=== PATIENT | male | born 1955 | race African-American/Black ===

== ENCOUNTER 2017-05-16 13:31 | Inpatient (IN) | payer OTHER ==
[2017-05-16 16:22] VITALS: BMI 23.5
--- NOTE | 2017-05-16 18:43 | HP ---
CIWA Score - CIWA Score Nausea/Vomitin-Mild Nausea/No Vomiting Muscle Tremors: 4-Moderate,w/Arms Extend Anxiety: 4-Mod. Anxious/Guarded Agitation: 4-Moderately Restless Paroxysmal Sweats: 1-Minimal Palms Moist Orientation: 1-Uncertain about Date Tacttile Disturbances: 0-None Auditory Disturbances: 0-None Visual Disturbances: 0-None Headache: 1-Very Mild CIWA-Ar Total Score: 16 Admission ROS BHS - HPI Chief Complaint: withdrawal sx Allergies/Adverse Reactions: Allergies Allergy/AdvReac Type Severity Reaction Status Date / Time No Known Allergies Allergy Verified 05/16/17 17:04 History of Present Illness: 61 years old male with long history of alcohol nicotine dependence has hypertension and depression is admitted to detox Exam Limitations: No Limitations - Ebola screening Have you traveled outside of the country in the last 21 days: No Have you had contact with anyone from an Ebola affected area: No Have you been sick,other than usual withdrawal symptoms: No Do you have a fever: No - Review of Systems Constitutional: Loss of Appetite, Changes in sleep, Unintentional Wgt. Loss, Unexplained wgt Loss EENT: reports: Blurred Vision (eye glasses), Dental Problems (multiple teeth missing) Respiratory: reports: SOB with Exertion, Productive cough (yellowish) Cardiac: reports: Chest Pain (chronic chest pain once - twice a year x 15 years no treatment) GI: reports: Nausea, Poor Appetite, Poor Fluid Intake, Abdominal cramping : reports: No Symptoms Reported Musculoskeletal: reports: No Symptoms Reported Integumentary: reports: Rash Neuro: reports: Tremors Endocrine: reports: No Symptoms Reported Hematology: reports: No Symptoms Reported Psychiatric: reports: Judgement Intact, Anxious, Depressed Other Systems: Reviewed and Negative Patient History - Patient Medical History Hx Anemia: No Hx Asthma: No Hx Chronic Obstructive Pulmonary Disease (COPD): No Hx Cancer: No Hx Cardiac Disorders: No Hx Congestive Heart Failure: No Hx Hypertension: Yes Hx Hypercholesterolemia: No Hx Pacemaker: No HX Cerebrovascular Accident: No Hx Seizures: No Hx Dementia: No Hx Diabetes: No Hx Gastrointestinal Disorders: No Hx Liver Disease: No Hx Genitourinary Disorders: No Hx Sexually Transmitted Disorders: No Hx Renal Disease (ESRD): No Hx Thyroid Disease: No Hx Human Immunodeficiency Virus (HIV): No Hx Hepatitis C: Yes (treated) Hx Depression: Yes Hx Suicide Attempt: No Hx Bipolar Disorder: No Hx Schizophrenia: No - Patient Surgical History Past Surgical History: Yes Hx Neurologic Surgery: No Hx Cataract Extraction: No Hx Cardiac Surgery: No Hx Lung Surgery: No Hx Breast Surgery: No Hx Breast Biopsy: No Hx Abdominal Surgery: No Hx Appendectomy: No Hx Cholecystectomy: No Hx Genitourinary Surgery: No Hx Orthopedic Surgery: Yes (left leg 1994) Anesthesia Reaction: No - PPD History Previous Implant?: Yes Documented Results: Negative w/o proof Implanted On Prior [facility] Admission?: No PPD to be Administered?: Yes - Smoking Cessation Smoking history: Current every day smoker Have you smoked in the past 12 months: Yes Aproximately how many cigarettes per day: 10 Cigars Per Day: 0 Hx Chewing Tobacco Use: No Initiated information on smoking cessation: Yes 'Breaking Loose' booklet given: 05/16/17 - Substance & Tx. History Hx Alcohol Use: Yes Hx Substance Use: Yes Substance Use Type: Alcohol, Cocaine Hx Substance Use Treatment: Yes (2006) - Substances Abused Alcohol Route: Oral Frequency: Daily Amount used: liquor- 2 pints, beer- 2 quarts Age of first use: 17 Date of Last Use: 05/16/17 Crack Route: Smoking Frequency: Daily Amount used: 5 bags Age of first use: 50 Date of Last Use: 05/14/17 Family Disease History - Family Disease History Family Disease History: Other: Brother (no contact), Sister (no contact) Admission Physical Exam S - Vital Signs Vital Signs: Vital Signs - 24 hr 05/16/17 16:20 Temperature 98.1 F Pulse Rate 90 Respiratory 18 Rate Blood Pressure 150/100 - Physical General Appearance: Yes: Appropriately Dressed, Mild Distress, Thin, Tremorous, Irritable, Sweating, Anxious HEENTM: Yes: Hearing grossly Normal, Normal ENT Inspection, Normocephalic, Normal Voice Respiratory: Yes: Chest Non-Tender, Lungs Clear, Normal Breath Sounds, No Respiratory Distress, No Accessory Muscle Use Neck: Yes: Supple Breast: Yes: Breasts Symetrical Cardiology: Yes: Regular Rhythm, S1, S2, Tachycardia Abdominal: Yes: Normal Bowel Sounds, Non Tender, Soft Genitourinary: Yes: Within Normal Limits Back: Yes: Normal Inspection Musculoskeletal: Yes: full range of Motion, Gait Steady Extremities: Yes: Normal Range of Motion, Non-Tender, Tremors Neurological: Yes: Alert, Motor Strength 5/5, Normal Response, Depressed Affect Integumentary: Yes: Warm, Rash (arms and necks x "months") Lymphatic: Yes: Within Normal Limits - Diagnostic (1) Alcohol dependence with uncomplicated withdrawal Current Visit: Yes Status: Acute (2) Nicotine dependence Current Visit: Yes Status: Acute Qualifiers: Nicotine product type: cigarettes Substance use status: in withdrawal Qualified Code(s): F17.213 - Nicotine dependence, cigarettes, with withdrawal (3) Hypertension Current Visit: Yes Status: Chronic Qualifiers: Hypertension type: essential hypertension Qualified Code(s): I10 - Essential (primary) hypertension (4) Depression (emotion) Current Visit: Yes Status: Suspected Qualifiers: Depression Type: dysthymia Qualified Code(s): F34.1 - Dysthymic disorder (5) Weight loss Current Visit: Yes Status: Acute (6) Hepatitis C Current Visit: Yes Status: Resolved Qualifiers: Viral hepatitis chronicity: carrier Qualified Code(s): B18.2 - Chronic viral hepatitis C Comment: treated 2015 (7) Frequent falls Current Visit: Yes Status: Chronic Comment: fall precaution cane Cleared for Admission [facility] - Detox or Rehab [facility] Level of Care: Medically Managed Detox Regimen/Protocol: Librium [facility] Breath Alcohol Content Breath Alcohol Content: 0 Urine Drug Screen - Results Drug Screen Negative: No Urine Drug Screen Results: ANTONIO-Cocaine
[2017-05-16] MEDS ORDERED: IBUPROFEN 400 MG TABLET (FP) PO PRN (18:45)
[2017-05-16] MEDS ORDERED: MENTHOL/PHENOL 1 EACH UD MM PRN (18:45)
[2017-05-16] MEDS ORDERED: MAGNESIUM CITRATE 300 ML BOTTLE PO PRN (18:45)
[2017-05-16] MEDS ORDERED: MAG HYDROX/AL HYDROX/SIMETH 30 ML UNIT-DOSE CUP PO PRN (18:45)
[2017-05-16] MEDS ORDERED: LOPERAMIDE HCL 2 MG CAPSULE PO PRN (18:45)
[2017-05-16] MEDS ORDERED: P-EPHED 60MG/TRIPROLIDI 2.5MG TABLET PO PRN (18:45)
[2017-05-16] MEDS ORDERED: MAGNESIUM HYDROX 2400MG/30ML ORAL SUSPENSION 30 ML CUP PO PRN (18:45)
[2017-05-16] MEDS ORDERED: NICOTINE POLACRILEX 2 MG GUM BUC PRN (18:45)
[2017-05-16] MEDS ORDERED: ACETAMINOPHEN 325 MG TABLET (FP) PO PRN (18:45)
[2017-05-16] MEDS ORDERED: chlordiazePOXIDE HCL 25 MG CAPSULE PO PRN (18:45)
[2017-05-16] MEDS: amLODIPine BESYLATE 5 MG TABLET (FP) PO SCH (19:56)
[2017-05-16] MEDS: guaiFENesin/D-METHORPHAN HB 10 ML UNIT-DOSE CUPS PO PRN (20:03)
[2017-05-16] MEDS: THIAMINE HCL 100 MG TABLET (FP) PO SCH (22:20)
[2017-05-16] MEDS: chlordiazePOXIDE HCL 25 MG CAPSULE PO SCH (22:20)
[2017-05-16] MEDS: HYDROCORTISONE 1% TOPICAL CREAM 30 GM TUBE TP SCH (22:21)
[2017-05-16 23:03] LABS: URINE APPEARANCE CLOUDY; URINE BILIRUBIN NEGATIVE (NEGATIVE); URINE BLOOD NEGATIVE (NEGATIVE); URINE COLOR AMBER; URINE GLUCOSE (UA) NEGATIVE (NEGATIVE); URINE KETONE NEGATIVE (NEGATIVE); URINE NITRITE POSITIVE (NEGATIVE); URINE PROTEIN NEGATIVE (NEGATIVE); URINE UROBILINOGEN 4.0 E.U/dl mg/dL (0.2-1.0)
[2017-05-16 23:05] LABS: URINE LEUK ESTERASE 1+ (NEGATIVE)
[2017-05-17 00:14] LABS: EPI CELLS RARE /HPF (FEW); URINE BACTERIA RARE /hpf (NONE SEEN); URINE MUCUS RARE
[2017-05-17] MEDS: chlordiazePOXIDE HCL 25 MG CAPSULE PO SCH ×4 (05:37→22:26)
[2017-05-17] MEDS: guaiFENesin/D-METHORPHAN HB 10 ML UNIT-DOSE CUPS PO PRN ×2 (09:28→17:12)
[2017-05-17 10:05] LABS: HEMATOCRIT 42.2 % (35.4-49); HEMOGLOBIN 13.1 GM/dL (11.7-16.9); MCH 28.8 pg (25.7-33.7); MCHC 31.1 g/dl (32.0-35.9); MEAN CELL VOLUME 92.6 fl (80-96); MEAN PLT VOLUME 9.8 fl (7.5-11.1); PLATELET COUNT 210 K/MM3 (134-434); RBC 4.56 M/mm3 (4.00-5.60); RDW 13.2 % (11.9-15.9); WHITE BLOOD COUNT 6.6 K/mm3 (4.0-10.0)
[2017-05-17] MEDS: NICOTINE 14 MG/24 HOURS TOPICAL PATCH TD SCH (10:09)
[2017-05-17] MEDS: amLODIPine BESYLATE 5 MG TABLET (FP) PO SCH (10:09)
[2017-05-17] MEDS: HYDROCORTISONE 1% TOPICAL CREAM 30 GM TUBE TP SCH ×4 (10:09→22:26)
[2017-05-17] MEDS: PRENATAL VITAMINS W/ FOLIC ACID TABLET (FP) PO SCH (10:09)
[2017-05-17 10:18] LABS: ALBUMIN 3.2 g/dl (3.4-5.0); ANION GAP 2 (8-16); BLOOD UREA NITROGEN 11 mg/dL (7-18); CALCIUM 8.5 mg/dL (8.5-10.1); CHLORIDE 109 mmol/L (98-107); CO2 32 mmol/L (21-32); GLUCOSE,RANDOM 89 mg/dL (74-106); POTASSIUM 4.3 mmol/L (3.5-5.1); SODIUM 143 mmol/L (136-145)
[2017-05-17 10:23] LABS: ALK PHOS 73 U/L (45-117); BILIRUBIN,TOTAL 0.6 mg/dL (0.2-1.0); CREATININE 0.8 mg/dL (0.7-1.3); SGOT/AST 10 U/L (15-37); SGPT/ALT 16 U/L (12-78); TOT PROT 6.1 g/dl (6.4-8.2)
--- NOTE | 2017-05-17 10:36 | CONSULT ---
[facility] Psychiatric Consult - Data Date of interview: 05/17/17 Admission source: [facility] Identifying data: First admission to [facility] for this 61 y/o AA male seeking detox treatment on for alcohol and cocaine dependence.Patient is single, a father of three,domiciled,unemployed and supported on [facility] benefits. Substance Abuse History: Discussed with patient in this session.Mr Luciano confirmed history of continuous use of alcohol and cocaine.See details in current [facility] report : Smoking history: Current every day smoker. Have you smoked in the past 12 months: Yes. Aproximately how many cigarettes per day: 10. Cigars Per Day: 0. Hx Chewing Tobacco Use: No. Initiated information on smoking cessation: Yes. 'Breaking Loose' booklet given: 05/16/17. - Substance & Tx. History. Hx Alcohol Use: Yes. Hx Substance Use: Yes. Substance Use Type : Alcohol, Cocaine. Hx Substance Use Treatment: Yes (2006). - Substances Abused. Alcohol. Route: Oral. Frequency: Daily. Amount used: liquor- 2 pints, beer- 2 quarts. Age of first use: 17. Date of Last Use: 05/16/17. Crack. Route: Smoking. Frequency: Daily. Amount used: 5 bags. Age of first use: 50. Date of Last Use: 05/14/17 Medical History: Remarkable for hypertension,arthritis,lower back pain,cirrhosis ,hepatitis C and a history of orthosurgery for fracture of left leg (1994). 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 ". Patient denies history of suicide attempts. Physical/Sexual Abuse/Trauma History: Patient denies. Additional Comment: Urine Drug Screen Results: ANTONIO-Cocaine.Noted. Mental Status Exam - Mental Status Exam Alert and Oriented to: Time, Place, Person Cognitive Function: Good Patient Appearance: Well Groomed Mood: Withdrawn, Anxious, Hopeful, Irritable Affect: Mood Congruent Patient Behavior: Fatigued, Cooperative (marginally cooperative,argumentative) Speech Pattern: Clear, Appropriate Voice Loudness: Normal Thought Process: Goal Oriented Thought Disorder: Not Present Hallucinations: Denies Suicidal Ideation: Denies Homicidal Ideation: Denies Insight/Judgement: Poor Sleep: Poorly, Difficulty falling asleep Appetite: Good Muscle strength/Tone: Normal Gait/Station: Other (not observed ; patient remains supine during entire interview) Psychiatric Findings - Problem List ([place] 1, 2,3) (1) Alcohol dependence with uncomplicated withdrawal Current Visit: Yes Status: Acute (2) Cocaine dependence Current Visit: Yes Status: Acute (3) Substance induced mood disorder Current Visit: Yes Status: Acute (4) Nicotine dependence Current Visit: Yes Status: Acute Qualifiers: Nicotine product type: cigarettes Substance use status: in withdrawal Qualified Code(s): F17.213 - Nicotine dependence, cigarettes, with withdrawal (5) Insomnia Current Visit: Yes Status: Acute - Initial Treatment Plan Initial Treatment Plan: Psychoeducation and support are provided in this session.Sleep hygiene discussed.Detoxification in progress.Trazodone 25 mg po hs (patient's specific request).Ordered.Patient made aware of risk of priapism.He reports past history of adequate response to that medication.Consent (verbal) given for treatment.Observation.
--- NOTE | 2017-05-17 11:14 | PN ---
[facility] CIWA - CIWA Score Nausea/Vomitin-No Nausea/No Vomiting Muscle Tremors: 4-Moderate,w/Arms Extend Anxiety: 3 Agitation: 3 Paroxysmal Sweats: 5 Orientation: 0-Oriented Tacttile Disturbances: 1-Very Mild Itch/Numbness Auditory Disturbances: 0-None Visual Disturbances: 0-None Headache: 2-Mild CIWA-Ar Total Score: 18 BHS Progress Note (SOAP) Subjective: Chills, tremor, sweating, headache, interrupted sleep Objective: 05/17/17 11:09 Last Vital Signs Temp Pulse Resp BP Pulse Ox 96.8 F L 73 17 141/80 05/17/17 10:12 05/17/17 10:12 05/17/17 10:12 05/17/17 10:12 Laboratory Tests 05/16/17 05/17/17 05/17/17 21:00 07:30 07:30 WBC 6.6 RBC 4.56 Hgb 13.1 Hct 42.2 MCV 92.6 MCH 28.8 MCHC 31.1 L RDW 13.2 Plt Count 210 MPV 9.8 Sodium 143 Potassium 4.3 Chloride 109 H Carbon Dioxide 32 Anion Gap 2 L BUN 11 Creatinine 0.8 Creat Clearance w eGFR > 60 Random Glucose 89 Calcium 8.5 Total Bilirubin 0.6 AST 10 L ALT 16 Alkaline Phosphatase 73 Total Protein 6.1 L Albumin 3.2 L Urine Color Ingrid Urine Appearance Cloudy Urine pH 6.0 Ur Specific [place] 1.023 Urine Protein Negative Urine Glucose (UA) Negative Urine Ketones Negative Urine Blood Negative Urine Nitrite Positive Urine Bilirubin Negative Urine Urobilinogen 4.0 e.u/dl Ur Leukocyte Esterase 1+ H Urine WBC (Auto) 34 Urine RBC (Auto) 2 Ur Epithelial Cells Rare Urine Bacteria Rare Urine Mucus Rare Labs noted: UA shows nitrite positive Assessment: 05/17/17 11:12 Withdrawal symptoms Noted with acute UTI Plan: Continue detox Acute UTI: encouraged to drink lots of water, start levaquin 500mg PO daily x 10 days (first dose today), follow up with PCP in 2 weeks after completion of antibiotic for further evaluation
[2017-05-17] MEDS: LEVOFLOXACIN 500 MG TABLET (FP) PO SCH (12:03)
[2017-05-17] MEDS: THIAMINE HCL 100 MG TABLET (FP) PO SCH (22:25)
[2017-05-17] MEDS: traZODone HCL 50 MG TABLET (FP) PO SCH (22:25)
[2017-05-18] MEDS: LEVOFLOXACIN 500 MG TABLET (FP) PO SCH (05:25)
[2017-05-18] MEDS: chlordiazePOXIDE HCL 25 MG CAPSULE PO SCH ×3 (05:25→17:30)
[2017-05-18] MEDS: guaiFENesin/D-METHORPHAN HB 10 ML UNIT-DOSE CUPS PO PRN (09:18)
[2017-05-18] MEDS: amLODIPine BESYLATE 5 MG TABLET (FP) PO SCH (10:03)
[2017-05-18] MEDS: PRENATAL VITAMINS W/ FOLIC ACID TABLET (FP) PO SCH (10:03)
[2017-05-18] MEDS: HYDROCORTISONE 1% TOPICAL CREAM 30 GM TUBE TP SCH ×4 (10:03→22:08)
[2017-05-18] MEDS: NICOTINE 14 MG/24 HOURS TOPICAL PATCH TD SCH (10:03)
--- NOTE | 2017-05-18 12:24 | PN ---
S CIWA - CIWA Score Nausea/Vomitin Muscle Tremors: 3 Anxiety: 3 Agitation: 2 Paroxysmal Sweats: 2 Orientation: 0-Oriented Tacttile Disturbances: 1-Very Mild Itch/Numbness Auditory Disturbances: 1-Very Mild Visual Disturbances: 1-Very Mild Sensitivity Headache: 1-Very Mild CIWA-Ar Total Score: 16 BHS Progress Note (SOAP) Subjective: Dizzy, lowback pain, neck and shoulder pain, shakes and sweats Objective: 05/18/17 12:23 Vital Signs - 8 hr 05/18/17 05/18/17 06:39 09:20 Temperature 98.4 F 97.1 F L Pulse Rate 76 78 Respiratory 20 18 Rate Blood Pressure 128/72 145/92 Laboratory Last Values WBC 6.6 K/mm3 (4.0-10.0) 05/17/17 07:30 RBC 4.56 M/mm3 (4.00-5.60) 05/17/17 07:30 Hgb 13.1 GM/dL (11.7-16.9) 05/17/17 07:30 Hct 42.2 % (35.4-49) 05/17/17 07:30 MCV 92.6 fl (80-96) 05/17/17 07:30 MCH 28.8 pg (25.7-33.7) 05/17/17 07:30 MCHC 31.1 g/dl (32.0-35.9) L 05/17/17 07:30 RDW 13.2 % (11.9-15.9) 05/17/17 07:30 Plt Count 210 K/MM3 (134-434) 05/17/17 07:30 MPV 9.8 fl (7.5-11.1) 05/17/17 07:30 Sodium 143 mmol/L (136-145) 05/17/17 07:30 Potassium 4.3 mmol/L (3.5-5.1) 05/17/17 07:30 Chloride 109 mmol/L (98-107) H 05/17/17 07:30 Carbon Dioxide 32 mmol/L (21-32) 05/17/17 07:30 Anion Gap 2 (8-16) L 05/17/17 07:30 BUN 11 mg/dL (7-18) 05/17/17 07:30 Creatinine 0.8 mg/dL (0.7-1.3) 05/17/17 07:30 Creat Clearance w eGFR > 60 (>60) 05/17/17 07:30 Random Glucose 89 mg/dL (74-106) 05/17/17 07:30 Calcium 8.5 mg/dL (8.5-10.1) 05/17/17 07:30 Total Bilirubin 0.6 mg/dL (0.2-1.0) 05/17/17 07:30 AST 10 U/L (15-37) L 05/17/17 07:30 ALT 16 U/L (12-78) 05/17/17 07:30 Alkaline Phosphatase 73 U/L (45-117) 05/17/17 07:30 Total Protein 6.1 g/dl (6.4-8.2) L 05/17/17 07:30 Albumin 3.2 g/dl (3.4-5.0) L 05/17/17 07:30 Urine Color Ingrid 05/16/17 21:00 Urine Appearance Cloudy 05/16/17 21:00 Urine pH 6.0 (5.0-8.0) 05/16/17 21:00 Ur Specific [place] 1.023 (1.001-1.035) 05/16/17 21:00 Urine Protein Negative (NEGATIVE) 05/16/17 21:00 Urine Glucose (UA) Negative (NEGATIVE) 05/16/17 21:00 Urine Ketones Negative (NEGATIVE) 05/16/17 21:00 Urine Blood Negative (NEGATIVE) 05/16/17 21:00 Urine Nitrite Positive (NEGATIVE) 05/16/17 21:00 Urine Bilirubin Negative (NEGATIVE) 05/16/17 21:00 Urine Urobilinogen 4.0 e.u/dl mg/dL (0.2-1.0) 05/16/17 21:00 Ur Leukocyte Esterase 1+ (NEGATIVE) H 05/16/17 21:00 Urine WBC (Auto) 34 /hpf (3-5) 05/16/17 21:00 Urine RBC (Auto) 2 /hpf (0-3) 05/16/17 21:00 Ur Epithelial Cells Rare /HPF (FEW) 05/16/17 21:00 Urine Bacteria Rare /hpf (NONE SEEN) 05/16/17 21:00 Urine Mucus Rare 05/16/17 21:00 RPR Titer Nonreactive (NONREACTIVE) 05/17/17 07:30 Labs noted Assessment: 05/18/17 12:24 Withdrawal sx Plan: Continue detox
--- NOTE | 2017-05-18 17:11 | EKG ---
Test Reason : Blood Pressure : / mmHG Vent. Rate : 075 BPM Atrial Rate : 075 BPM P-R Int : 130 ms QRS Dur : 084 ms QT Int : 412 ms P-R-T Axes : 072 064 063 degrees QTc Int : 460 ms NORMAL SINUS RHYTHM VOLTAGE CRITERIA FOR LEFT VENTRICULAR HYPERTROPHY ABNORMAL ECG NO PREVIOUS ECGS AVAILABLE Confirmed by THANH TUBBS MD ([id number]) on 05/18/2017 5:11:06 PM Referred By: Confirmed By:THANH TUBBS MD
[2017-05-18] MEDS: traZODone HCL 50 MG TABLET (FP) PO SCH (22:06)
[2017-05-18] MEDS: THIAMINE HCL 100 MG TABLET (FP) PO SCH (22:06)
[2017-05-18] MEDS: chlordiazePOXIDE 5 MG CAPSULE PO SCH (22:07)
[2017-05-19] MEDS: chlordiazePOXIDE 5 MG CAPSULE PO SCH ×3 (06:44→20:17)
[2017-05-19] MEDS: LEVOFLOXACIN 500 MG TABLET (FP) PO SCH (06:44)
[2017-05-19] MEDS: guaiFENesin/D-METHORPHAN HB 10 ML UNIT-DOSE CUPS PO PRN (09:54)
[2017-05-19] MEDS: PRENATAL VITAMINS W/ FOLIC ACID TABLET (FP) PO SCH (10:12)
[2017-05-19] MEDS: NICOTINE 14 MG/24 HOURS TOPICAL PATCH TD SCH (10:13)
[2017-05-19] MEDS: amLODIPine BESYLATE 5 MG TABLET (FP) PO SCH (10:13)
[2017-05-19] MEDS: HYDROCORTISONE 1% TOPICAL CREAM 30 GM TUBE TP SCH ×4 (10:13→22:04)
--- NOTE | 2017-05-19 13:43 | PN ---
BHS Progress Note (SOAP) Subjective: Sweating, Body Aches. Objective: PT. A & O X 3, OBSERVED AMBULATING ON UNIT. NO ACUTE DISTRESS. 05/19/17 13:40 Vital Signs Temperature 99.4 F 05/19/17 09:52 Pulse Rate 72 05/19/17 09:52 Respiratory Rate 18 05/19/17 09:52 Blood Pressure 143/90 05/19/17 09:52 O2 Sat by Pulse Oximetry (%) Laboratory Tests 05/16/17 05/17/17 05/17/17 21:00 07:30 07:30 WBC 6.6 RBC 4.56 Hgb 13.1 Hct 42.2 MCV 92.6 MCH 28.8 MCHC 31.1 L RDW 13.2 Plt Count 210 MPV 9.8 Sodium 143 Potassium 4.3 Chloride 109 H Carbon Dioxide 32 Anion Gap 2 L BUN 11 Creatinine 0.8 Creat Clearance w eGFR > 60 Random Glucose 89 Calcium 8.5 Total Bilirubin 0.6 AST 10 L ALT 16 Alkaline Phosphatase 73 Total Protein 6.1 L Albumin 3.2 L Urine Color Ingrid Urine Appearance Cloudy Urine pH 6.0 Ur Specific [place] 1.023 Urine Protein Negative Urine Glucose (UA) Negative Urine Ketones Negative Urine Blood Negative Urine Nitrite Positive Urine Bilirubin Negative Urine Urobilinogen 4.0 e.u/dl Ur Leukocyte Esterase 1+ H Urine WBC (Auto) 34 Urine RBC (Auto) 2 Ur Epithelial Cells Rare Urine Bacteria Rare Urine Mucus Rare RPR Titer 05/17/17 07:30 WBC RBC Hgb Hct MCV MCH MCHC RDW Plt Count MPV Sodium Potassium Chloride Carbon Dioxide Anion Gap BUN Creatinine Creat Clearance w eGFR Random Glucose Calcium Total Bilirubin AST ALT Alkaline Phosphatase Total Protein Albumin Urine Color Urine Appearance Urine pH Ur Specific [place] Urine Protein Urine Glucose (UA) Urine Ketones Urine Blood Urine Nitrite Urine Bilirubin Urine Urobilinogen Ur Leukocyte Esterase Urine WBC (Auto) Urine RBC (Auto) Ur Epithelial Cells Urine Bacteria Urine Mucus RPR Titer Nonreactive LABS NOTED. Assessment: 05/19/17 13:42 WITHDRAWAL SYMPTOMS. Plan: CONTINUE DETOX. INCREASE DAILY PO FLUID INTAKE. CONTINUE LEVAQUIN DAILY FOR UTI.
[2017-05-19] MEDS: THIAMINE HCL 100 MG TABLET (FP) PO SCH (22:04)
[2017-05-19] MEDS: traZODone HCL 50 MG TABLET (FP) PO SCH (22:04)
[2017-05-19] MEDS: chlordiazePOXIDE HCL 10 MG CAPSULE PO SCH (22:04)
[2017-05-20] MEDS: LEVOFLOXACIN 500 MG TABLET (FP) PO SCH (06:28)
[2017-05-20] MEDS: chlordiazePOXIDE HCL 10 MG CAPSULE PO SCH (06:28)
[2017-05-20 09:29] VITALS: BP 139/85; PULSE 60; TEMP 97.8
--- NOTE | 2017-05-20 10:12 | DS ---
[facility] Detox Discharge Summary Admission Date: 05/16/17 Discharge Date: 05/20/17 - History Pertinent Past History: HTN - Physical Exam Results Vital Signs: Vital Signs Temperature 97.8 F 05/20/17 09:28 Pulse Rate 60 05/20/17 09:28 Respiratory Rate 18 05/20/17 09:28 Blood Pressure 139/85 05/20/17 09:28 O2 Sat by Pulse Oximetry (%) - Treatment Hospital Course: Detox Protocol Followed, Detoxed Safely, Responded well, Discharged Condition Good, Rehab Referral Accepted Patient has Accepted a Rehab Referral to: O/P AA meetings - Medication Discharge Medications: Ambulatory Orders Amlodipine Besylate [Norvasc -] 5 mg PO DAILY 05/16/17 Fluoxetine HCl [Prozac -] 20 mg PO DAILY 05/16/17 Risperidone [Risperdal -] 0.5 mg PO BID 05/16/17 Levofloxacin [Levaquin -] 500 mg PO DAILY@0600 5 Days #5 tablet 05/20/17
== END 2017-05-20 11:48 | disposition home or self-care (01) | DRG 774 ==
LOC: YASAS 13:31 → Y3N 16:41
PROVIDERS: ADMIT Internal Medicine; ATTEND Internal Medicine
PROC: HZ2ZZZZ Detoxification Services for Substance Abuse Treatment (ICD-10-PCS; principal; 2017-05-16)
DX: F10.230 Alcohol dependence with withdrawal, uncomplicated (principal); F14.20 Cocaine dependence, uncomplicated; F17.213 Nicotine dependence, cigarettes, with withdrawal; F19.24 Other psychoactive substance dependence with psychoactive substance-induced mood disorder; F34.1 Dysthymic disorder; N39.0 Urinary tract infection, site not specified; I10 Essential (primary) hypertension; B18.2 Chronic viral hepatitis C; G47.00 Insomnia, unspecified; R29.6 Repeated falls; Z87.898 Personal history of other specified conditions
CPT/HCPCS: 36415; 80053; 81003; 81015; 85027; 86593; 87086; 87186; 93005; 93010

== ENCOUNTER 2018-02-13 13:41 | Inpatient (IN) | payer OTHER ==
[2018-02-13 14:36] VITALS: BMI 25.7
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
[2018-02-13] MEDS ORDERED: LOPERAMIDE HCL 2 MG CAPSULE PO PRN (18:14)
[2018-02-13] MEDS ORDERED: chlordiazePOXIDE HCL 25 MG CAPSULE PO PRN (18:14)
[2018-02-13] MEDS ORDERED: MAGNESIUM HYDROX 2400MG/30ML ORAL SUSPENSION 30 ML CUP PO PRN (18:14)
[2018-02-13] MEDS ORDERED: guaiFENesin/D-METHORPHAN HB 10 ML UNIT-DOSE CUPS PO PRN (18:14)
[2018-02-13] MEDS ORDERED: IBUPROFEN 400 MG TABLET (FP) PO PRN (18:14)
[2018-02-13] MEDS ORDERED: MENTHOL/PHENOL 1 EACH UD MM PRN (18:14)
[2018-02-13] MEDS ORDERED: NICOTINE POLACRILEX 2 MG GUM BC PRN (18:14)
[2018-02-13] MEDS ORDERED: P-EPHED 60MG/TRIPROLIDI 2.5MG TABLET PO PRN (18:14)
[2018-02-13] MEDS ORDERED: MAGNESIUM CITRATE 300 ML BOTTLE PO PRN (18:14)
[2018-02-13] MEDS ORDERED: ACETAMINOPHEN 325 MG TABLET (FP) PO PRN (18:14)
[2018-02-13] MEDS ORDERED: MAG HYDROX/AL HYDROX/SIMETH 30 ML UNIT-DOSE CUP PO PRN (18:14)
[2018-02-13] MEDS ORDERED: cloNIDine HCL 0.1 MG TABLET PO ONE (18:30)
[2018-02-13] MEDS ORDERED: chlordiazePOXIDE 5 MG CAPSULE PO PRN (19:41)
[2018-02-13] MEDS ORDERED: MELATONIN 5 MG TABLETS PO PRN (22:00)
[2018-02-13] MEDS: THIAMINE HCL 100 MG TABLET (FP) PO SCH (23:00)
[2018-02-13] MEDS: chlordiazePOXIDE HCL 25 MG CAPSULE PO SCH (23:00)
[2018-02-14] MEDS: chlordiazePOXIDE HCL 25 MG CAPSULE PO SCH ×4 (06:14→23:27)
--- NOTE | 2018-02-14 09:57 | CONSULT ---
[facility] Psychiatric Consult - Data Date of interview: 02/14/18 Admission source: [facility] Identifying data: Patient is a 62 year old single male, currently homeless and is supported by SSI benefits. This is one of multiple admissions for patient. Patient admitted to for alcohol dependence. Substance Abuse History: Smoking Cessation. Smoking history: Current every day smoker. Have you smoked in the past 12 months: Yes. Aproximately how many cigarettes per day: 10. Cigars Per Day: 0. Hx Chewing Tobacco Use: No. Initiated information on smoking cessation: No. - Substances Abused. Alcohol. Route: Oral. Frequency: Daily. Amount used: 1 BOTTLE VODKA. Age of first use: 16. Date of Last Use: 02/13/18. Cocaine. Route: Smoking. Frequency: Daily. Amount used: $200. Age of first use: 40. Date of Last Use: 02/13/18 Medical History: left leg surgery (1994) Psychiatric History: Patient denies h/o psychiatric hospitalization. Most recent outpatient psychiatric care was provided at [facility] one year ago. Patient stated he was prescribed risperdal 0.5mg BID and prozac but has not accepted medication in one year. He reports h/o depression and anxiety. Patient irritable upon approach but able to soften his tone after several minutes of speaking to him. Patient denies h/o suicide attempt. Physical/Sexual Abuse/Trauma History: denies. Additional Comment: Reports 23 years of incarceration due to drug use. Mental Status Exam - Mental Status Exam Alert and Oriented to: Time, Place, Person Cognitive Function: Good Patient Appearance: Well Groomed Mood: Irritable Affect: Mood Congruent Patient Behavior: Cooperative (Patient was agitated at first but was able to calm down and remain cooperative throughout interview. ), Agitated (agitated at first but able to calm down) Speech Pattern: Appropriate Voice Loudness: Normal Thought Process: Intact, Goal Oriented Thought Disorder: Not Present Hallucinations: Denies Suicidal Ideation: Denies Homicidal Ideation: Denies Insight/Judgement: Poor Sleep: Fair Appetite: Fair Muscle strength/Tone: Normal Gait/Station: Normal Psychiatric Findings - Problem List ([place] 1, 2,3) (1) Alcohol dependence with uncomplicated withdrawal Current Visit: Yes Status: Acute (2) Cocaine dependence Current Visit: No Status: Acute Qualifiers: Substance use status: uncomplicated Qualified Code(s): F14.20 - Cocaine dependence, uncomplicated (3) Substance induced mood disorder Current Visit: Yes Status: Acute - Initial Treatment Plan Initial Treatment Plan: Psychoeducation provided. Detoxification in progress. Observation.
[2018-02-14 10:01] LABS: HEMATOCRIT 40.7 % (35.4-49); HEMOGLOBIN 12.8 GM/dL (11.7-16.9); MCH 29.5 pg (25.7-33.7); MCHC 31.5 g/dl (32.0-35.9); MEAN CELL VOLUME 93.6 fl (80-96); MEAN PLT VOLUME 10.6 fl (7.5-11.1); PLATELET COUNT 165 K/MM3 (134-434); RBC 4.35 M/mm3 (4.00-5.60); WHITE BLOOD COUNT 5.4 K/mm3 (4.0-10.0)
--- NOTE | 2018-02-14 10:14 | EKG ---
Test Reason : Blood Pressure : / mmHG Vent. Rate : 067 BPM Atrial Rate : 067 BPM P-R Int : 140 ms QRS Dur : 092 ms QT Int : 434 ms P-R-T Axes : 066 066 061 degrees QTc Int : 458 ms NORMAL SINUS RHYTHM VOLTAGE CRITERIA FOR LEFT VENTRICULAR HYPERTROPHY ABNORMAL ECG WHEN COMPARED WITH ECG OF 16-MAY-2017 21:05, NO SIGNIFICANT CHANGE WAS FOUND Confirmed by KINDRA WINSTON MD ([id number]) on 02/14/2018 10:14:17 AM Referred By: Confirmed By:KINDRA WINSTON MD
[2018-02-14] MEDS: PRENATAL VITAMINS W/ FOLIC ACID TABLET (FP) PO SCH (10:26)
[2018-02-14 10:38] LABS: ALBUMIN 3.3 g/dl (3.4-5.0); ALK PHOS 58 U/L (45-117); ANION GAP 5 MMOL/L (8-16); BILIRUBIN,TOTAL 0.4 mg/dL (0.2-1); BLOOD UREA NITROGEN 13 mg/dL (7-18); CALCIUM 9.2 mg/dL (8.5-10.1); CHLORIDE 110 mmol/L (98-107); CO2 30 mmol/L (21-32); GLUCOSE,RANDOM 87 mg/dL (74-106); POTASSIUM 4.6 mmol/L (3.5-5.1); SGOT/AST 10 U/L (15-37); SGPT/ALT 17 U/L (13-61); SODIUM 144 mmol/L (136-145); TOT PROT 6.1 g/dl (6.4-8.2)
--- NOTE | 2018-02-14 11:49 | PN ---
[facility] Progress Note Note: during rounding, pt was approached and asked how he felt, pt stood up and began to yell and stated I dont want you or anyone talking to me and asking me over and over again how i feel. Pt was asked to calm down and bond underwriter tried to explain the reason for the question however, pt became for irrate and started to threaten. Computer Engineering Technician spoke with counselor and speak regarding his behavior. Psych consultation ordered.
--- NOTE | 2018-02-14 11:51 | PN ---
S CIWA - CIWA Score Nausea/Vomitin-No Nausea/No Vomiting Muscle Tremors: 4-Moderate,w/Arms Extend Anxiety: 4-Mod. Anxious/Guarded Agitation: 4-Moderately Restless Paroxysmal Sweats: 3 Orientation: 0-Oriented Tacttile Disturbances: 0-None Auditory Disturbances: 0-None Visual Disturbances: 0-None Headache: 0-None Present CIWA-Ar Total Score: 15 [facility] Progress Note (SOAP) Subjective: irritable agitation anxiety I dont want to be bothered. Objective: 02/14/18 11:52 Vital Signs Temperature 97.7 F 02/14/18 10:00 Pulse Rate 56 L 02/14/18 10:00 Respiratory Rate 20 02/14/18 10:00 Blood Pressure 114/66 02/14/18 10:00 O2 Sat by Pulse Oximetry (%) Laboratory Tests 02/14/18 02/14/18 02/14/18 07:00 07:00 07:00 WBC 5.4 RBC 4.35 Hgb 12.8 Hct 40.7 MCV 93.6 MCH 29.5 MCHC 31.5 L RDW 13.0 Plt Count 165 D MPV 10.6 Sodium 144 Potassium 4.6 Chloride 110 H Carbon Dioxide 30 Anion Gap 5 L BUN 13 Creatinine 1.0 Creat Clearance w eGFR > 60 Random Glucose 87 Calcium 9.2 Total Bilirubin 0.4 AST 10 L ALT 17 Alkaline Phosphatase 58 Total Protein 6.1 L Albumin 3.3 L RPR Titer Nonreactive rest of labs pending aaox3 ambulating no acute distress Assessment: 02/14/18 11:52 withdrawal sx Plan: continue detox increase fluids
--- NOTE | 2018-02-14 15:57 | PN ---
[facility] Progress Note Note: commercial lines underwriter and pt spoke regarding morning outburst and pt apologized. Pt states he felt overwhelmed with everything happening in the morning between breakfast, vitals and constant questioning. Pt state he was out of line and will be more compliant with medical staff and all staff. Pt was appropriate with he behavior.
[2018-02-14] MEDS: THIAMINE HCL 100 MG TABLET (FP) PO SCH (23:27)
[2018-02-15] MEDS: chlordiazePOXIDE HCL 25 MG CAPSULE PO SCH ×3 (05:28→18:09)
--- NOTE | 2018-02-15 10:43 | PN ---
[facility] Progress Note Note: Vital Signs Temperature 97.9 F 02/15/18 07:44 Pulse Rate 60 02/15/18 07:44 Respiratory Rate 18 02/15/18 07:44 Blood Pressure 131/77 02/15/18 07:44 O2 Sat by Pulse Oximetry (%) Patient very irritable, argumentative, pacing, disrespectful. Patient expressed by several times that he wishes to kill himself, "several times, I want kill myself." Dr. Salomon was consulted to evaluate patient.
[2018-02-15] MEDS: PRENATAL VITAMINS W/ FOLIC ACID TABLET (FP) PO SCH (11:33)
[2018-02-15] MEDS ORDERED: hydrOXYzine PAMOATE 50 MG CAPSULE (FP) PO PRN (11:36)
[2018-02-15] MEDS: amLODIPine BESYLATE 5 MG TABLET (FP) PO SCH (13:27)
[2018-02-15] MEDS: risperiDONE 0.5 MG TABLET (FP) PO SCH (13:28)
--- NOTE | 2018-02-15 14:20 | PN ---
Psychiatric Progress Note Vital Signs: Vital Signs Period Temp Pulse Resp BP Sys/Esteves Pulse Ox Last 24 Hr 96.0 F-99.1 F 60-81 16-18 131-160/77-98 Date of Session: 02/15/18 Chief Complaint:: " They want to throw me out of this program." HPI: Asked to re-evaluate this patient,earlier in the morning, because of behavioral dyscontrol (frequent arguments with staff + peers) which almost led to his discharge (administrative).Mr Luciano is at [address] [place] [address] for detoxification treatment (alcohol + cocaine). ROS: Patient is ambulatory. Steady gait. Alert and fully oriented. Concerned about hypertension. Current Medications: Active Medications Generic Name Dose Route Start Last Admin Trade Name Freq PRN Reason Stop Dose Admin Acetaminophen 650 mg 02/13/18 18:14 Tylenol - PO Q4H PRN FEVER Al Hydroxide/Mg Hydroxide 30 ml 02/13/18 18:14 Mylanta Oral Suspension - PO Q6H PRN DYSPEPSIA Amlodipine Besylate 5 mg 02/15/18 13:00 Norvasc - PO DAILY OTILIO Chlordiazepoxide HCl 25 mg 02/14/18 23:00 02/15/18 11:33 Librium - PO 02/15/18 17:01 25 mg Q6N-VBP OTILIO Administration Chlordiazepoxide HCl 15 mg 02/15/18 23:00 Librium - PO 02/16/18 17:01 [id number] OTILIO Chlordiazepoxide HCl 10 mg 02/16/18 23:00 Librium - PO 02/17/18 17:01 [id number] OTILIO Chlordiazepoxide HCl 10 mg 02/13/18 19:41 02/13/18 20:18 Librium - PO 02/16/18 18:13 10 mg Q4H PRN Administration WITHDRAWAL(CONT SUBST) Eucalyptus/Menthol/Phenol/Sorbitol 1 each 02/13/18 18:14 Cepastat Lozenge - MM Q4H PRN SORE THROAT Guaifenesin 10 ml 02/13/18 18:14 Robitussin Dm - PO Q6H PRN COUGH Hydroxyzine Pamoate 50 mg 02/15/18 11:36 02/15/18 11:54 Vistaril - PO 50 mg Q4H PRN Administration FOR ITCHING Ibuprofen 400 mg 02/13/18 18:14 Motrin - PO Q6H PRN PAIN LEVEL 4-6 Loperamide HCl 4 mg 02/13/18 18:14 Imodium - PO Q6H PRN DIARRHEA Magnesium Citrate 300 ml 02/13/18 18:14 Citroma - PO Q48H PRN CONSTIPATION Magnesium Hydroxide 30 ml 02/13/18 18:14 Milk Of Magnesia - PO DAILY PRN CONSTIPATION Melatonin 5 mg 02/13/18 22:00 Melatonin PO HS PRN INSOMNIA Nicotine Polacrilex 2 mg 02/13/18 18:14 Nicorette Gum - BC Q2H PRN NICOTINE REPLACEMENT RX Multivit/Folic Acid/Iron 1 tab 02/14/18 10:00 02/15/18 11:33 Vitamins (Sjr) - PO 1 tab DAILY OTILIO Administration Pseudoephedrine/Triprolidine 1 combo 02/13/18 18:14 Actifed - PO TID PRN NASAL CONGESTION Risperidone 0.5 mg 02/15/18 11:45 Risperdal - PO DAILY OTILIO Thiamine HCl 100 mg 02/13/18 22:00 02/14/18 23:27 Vitamin B1 - PO Not Given HS OTILIO Medication(s) Change(s): Risperdal 0.5 mg po daily is added at patient's request. Side effects/benefits discussed with the patient.Mr Luciano reports risperdal as " the medication that calms my nerves and keeps me from getting in trouble with people." Patient is alreay known to this machine sign writer. Current Side Effect: No Lab tests ordered: No Lab tests reviewed: Yes Provider note:: Chart reviewed. Note from insurance policy clerk Amairani (02/14/18) : appreciated.Met with patient. Mr Luciano explains that he is upset with the staff. " I don't like the way I am treated here.I am not a child.They think that I should jump whenever they give orders." It appears that the patient has been demanding,perseverative, somewhat hypervigilant and argumentative for no apparent reason. Also reported as intrusive and refractory to redirections.In fact, this psychiatric evaluation was requested because the decison was made to discharge this patient (administratively) for non-adherence to unit rules/ regulations.Mr Luciano argues that he felt " disrespected and treated unfairly ". In my interview, the patient is noted as apologetic for his behavior, fearful of this uncheduled discharge which would have compromised his goal to enter rehabilitation at [facility] in next two days (patient already accepted at that agency). Promises to follow directions and refrain from disruptive behaviors. Made aware that discharge will follow in case of violation of this therapeutic contract.Mr Luciano agrees. Observed as mildly paranoid and impulsive but NOT suicidal or homicidal. Patient, vehemently denies having intent,plan or ideation to harm self or others. " Cognitively intact,conversant, logical and relevant. Patient is at his baseline. Not a danger to self/ others.Mr Luciano is allowed, under strict conditions, to complete his detoxification protocol until his scheduled discharge to [facility] on . Total face to face time:: 75 Mental Status Exam - Mental Status Exam Alert and Oriented to: Time, Place, Person Cognitive Function: Good Patient Appearance: Well Groomed Mood: Apprehensive Affect: Mood Congruent, Normal Range Patient Behavior: Talkative, Cooperative Speech Pattern: Clear, Appropriate Voice Loudness: Normal Thought Process: Goal Oriented Thought Disorder: Paranoid Ideation (mild paranoia about staff disrespecting him because of his ethnicity) Hallucinations: Denies Suicidal Ideation: Denies Homicidal Ideation: Denies Insight/Judgement: Poor Sleep: Well Appetite: Good Muscle strength/Tone: Normal Gait/Station: Normal Psychiatric Treatment Plan - Problem List (1) Alcohol dependence with uncomplicated withdrawal Current Visit: Yes Comment: . (2) Cocaine dependence Current Visit: Yes Qualifiers: Substance use status: uncomplicated Qualified Code(s): F14.20 - Cocaine dependence, uncomplicated Comment: . (3) Nicotine dependence Current Visit: Yes Qualifiers: Nicotine product type: cigarettes Substance use status: uncomplicated Qualified Code(s): F17.210 - Nicotine dependence, cigarettes, uncomplicated Comment: . (4) Substance induced mood disorder Current Visit: Yes Comment: .
--- NOTE | 2018-02-15 14:45 | PN ---
[facility] CIWA - CIWA Score Nausea/Vomitin-No Nausea/No Vomiting Muscle Tremors: None Anxiety: 6 Agitation: 6 Paroxysmal Sweats: No Perspiration Orientation: 0-Oriented Tacttile Disturbances: 0-None Auditory Disturbances: 0-None Visual Disturbances: 0-None Headache: 0-None Present CIWA-Ar Total Score: 12 S Progress Note (SOAP) Subjective: anxious, interrupted sleep Objective: 02/15/18 14:43 Vital Signs Temperature 97.9 F 02/15/18 07:44 Pulse Rate 60 02/15/18 07:44 Respiratory Rate 18 02/15/18 07:44 Blood Pressure 131/77 02/15/18 07:44 O2 Sat by Pulse Oximetry (%) Laboratory Last Values WBC 5.4 K/mm3 (4.0-10.0) 02/14/18 07:00 RBC 4.35 M/mm3 (4.00-5.60) 02/14/18 07:00 Hgb 12.8 GM/dL (11.7-16.9) 02/14/18 07:00 Hct 40.7 % (35.4-49) 02/14/18 07:00 MCV 93.6 fl (80-96) 02/14/18 07:00 MCH 29.5 pg (25.7-33.7) 02/14/18 07:00 MCHC 31.5 g/dl (32.0-35.9) L 02/14/18 07:00 RDW 13.0 % (11.9-15.9) 02/14/18 07:00 Plt Count 165 K/MM3 (134-434) D 02/14/18 07:00 MPV 10.6 fl (7.5-11.1) 02/14/18 07:00 Sodium 144 mmol/L (136-145) 02/14/18 07:00 Potassium 4.6 mmol/L (3.5-5.1) 02/14/18 07:00 Chloride 110 mmol/L (98-107) H 02/14/18 07:00 Carbon Dioxide 30 mmol/L (21-32) 02/14/18 07:00 Anion Gap 5 MMOL/L (8-16) L 02/14/18 07:00 BUN 13 mg/dL (7-18) 02/14/18 07:00 Creatinine 1.0 mg/dL (0.55-1.3) 02/14/18 07:00 Creat Clearance w eGFR > 60 (>60) 02/14/18 07:00 Random Glucose 87 mg/dL (74-106) 02/14/18 07:00 Calcium 9.2 mg/dL (8.5-10.1) 02/14/18 07:00 Total Bilirubin 0.4 mg/dL (0.2-1) 02/14/18 07:00 AST 10 U/L (15-37) L 02/14/18 07:00 ALT 17 U/L (13-61) 02/14/18 07:00 Alkaline Phosphatase 58 U/L (45-117) 02/14/18 07:00 Total Protein 6.1 g/dl (6.4-8.2) L 02/14/18 07:00 Albumin 3.3 g/dl (3.4-5.0) L 02/14/18 07:00 RPR Titer Nonreactive (NONREACTIVE) 02/14/18 07:00 Aox3, anxious, irritable, argumentative no adventitious breath sounds full ROM ambulating in the unit Assessment: 02/15/18 14:44 withdrawal sx Plan: continue detox increase fluids continue to monitor
[2018-02-15] MEDS: chlordiazePOXIDE 5 MG CAPSULE PO SCH (22:55)
[2018-02-15] MEDS: THIAMINE HCL 100 MG TABLET (FP) PO SCH (22:55)
[2018-02-16] MEDS: chlordiazePOXIDE 5 MG CAPSULE PO SCH ×3 (05:20→17:42)
[2018-02-16] MEDS: PRENATAL VITAMINS W/ FOLIC ACID TABLET (FP) PO SCH (10:05)
[2018-02-16] MEDS: amLODIPine BESYLATE 5 MG TABLET (FP) PO SCH (10:05)
[2018-02-16] MEDS: risperiDONE 0.5 MG TABLET (FP) PO SCH (10:05)
[2018-02-16 11:58] LABS: URINE APPEARANCE CLEAR; URINE BILIRUBIN NEGATIVE (<2.0 mg/dL); URINE COLOR STRAW; URINE GLUCOSE (UA) NEGATIVE (NEGATIVE); URINE KETONE NEGATIVE (NEGATIVE); URINE LEUK ESTERASE NEGATIVE (NEGATIVE); URINE NITRITE NEGATIVE (NEGATIVE); URINE PROTEIN NEGATIVE (NEGATIVE); URINE UROBILINOGEN NEGATIVE mg/dL (0.2-1.0)
--- NOTE | 2018-02-16 15:51 | PN ---
[facility] Progress Note (SOAP) Subjective: feeling better, no tremor less sweat sleep better at night Objective: 02/16/18 15:50 Vital Signs Temperature 97.1 F L 02/16/18 14:34 Pulse Rate 108 H 02/16/18 14:34 Respiratory Rate 18 02/16/18 14:34 Blood Pressure 142/78 02/16/18 14:34 O2 Sat by Pulse Oximetry (%) Laboratory Last Values WBC 5.4 K/mm3 (4.0-10.0) 02/14/18 07:00 RBC 4.35 M/mm3 (4.00-5.60) 02/14/18 07:00 Hgb 12.8 GM/dL (11.7-16.9) 02/14/18 07:00 Hct 40.7 % (35.4-49) 02/14/18 07:00 MCV 93.6 fl (80-96) 02/14/18 07:00 MCH 29.5 pg (25.7-33.7) 02/14/18 07:00 MCHC 31.5 g/dl (32.0-35.9) L 02/14/18 07:00 RDW 13.0 % (11.9-15.9) 02/14/18 07:00 Plt Count 165 K/MM3 (134-434) D 02/14/18 07:00 MPV 10.6 fl (7.5-11.1) 02/14/18 07:00 Sodium 144 mmol/L (136-145) 02/14/18 07:00 Potassium 4.6 mmol/L (3.5-5.1) 02/14/18 07:00 Chloride 110 mmol/L (98-107) H 02/14/18 07:00 Carbon Dioxide 30 mmol/L (21-32) 02/14/18 07:00 Anion Gap 5 MMOL/L (8-16) L 02/14/18 07:00 BUN 13 mg/dL (7-18) 02/14/18 07:00 Creatinine 1.0 mg/dL (0.55-1.3) 02/14/18 07:00 Creat Clearance w eGFR > 60 (>60) 02/14/18 07:00 Random Glucose 87 mg/dL (74-106) 02/14/18 07:00 Calcium 9.2 mg/dL (8.5-10.1) 02/14/18 07:00 Total Bilirubin 0.4 mg/dL (0.2-1) 02/14/18 07:00 AST 10 U/L (15-37) L 02/14/18 07:00 ALT 17 U/L (13-61) 02/14/18 07:00 Alkaline Phosphatase 58 U/L (45-117) 02/14/18 07:00 Total Protein 6.1 g/dl (6.4-8.2) L 02/14/18 07:00 Albumin 3.3 g/dl (3.4-5.0) L 02/14/18 07:00 Urine Color Straw 02/16/18 07:30 Urine Appearance Clear 02/16/18 07:30 Urine pH 6.0 (5.0-8.0) 02/16/18 07:30 Ur Specific [place] 1.008 (1.010-1.035) L 02/16/18 07:30 Urine Protein Negative (NEGATIVE) 02/16/18 07:30 Urine Glucose (UA) Negative (NEGATIVE) 02/16/18 07:30 Urine Ketones Negative (NEGATIVE) 02/16/18 07:30 Urine Blood Negative (NEGATIVE) 02/16/18 07:30 Urine Nitrite Negative (NEGATIVE) 02/16/18 07:30 Urine Bilirubin Negative (<2.0 mg/dL) 02/16/18 07:30 Urine Urobilinogen Negative mg/dL (0.2-1.0) 02/16/18 07:30 Ur Leukocyte Esterase Negative (NEGATIVE) 02/16/18 07:30 RPR Titer Nonreactive (NONREACTIVE) 02/14/18 07:00 lab noted Assessment: 02/16/18 15:50 mild withdrawal sx Plan: medically supervised detox
[2018-02-16] MEDS: chlordiazePOXIDE HCL 10 MG CAPSULE PO SCH (22:54)
[2018-02-16] MEDS: THIAMINE HCL 100 MG TABLET (FP) PO SCH (22:55)
[2018-02-17] MEDS: chlordiazePOXIDE HCL 10 MG CAPSULE PO SCH (05:19)
[2018-02-17 06:45] VITALS: PULSE 74
--- NOTE | 2018-02-17 08:37 | DS ---
[facility] Detox Discharge Summary Admission Date: 02/13/18 Discharge Date: 02/17/18 - History Present History: Alcohol Dependence, Cocaine Dependence - Physical Exam Results Vital Signs: Vital Signs Temperature 96.6 F L 02/17/18 06:00 Pulse Rate 74 02/17/18 06:00 Respiratory Rate 18 02/17/18 06:00 Blood Pressure 123/65 02/17/18 06:00 O2 Sat by Pulse Oximetry (%) - Treatment Hospital Course: Detox Protocol Followed, Detoxed Safely, Responded well, Discharged Condition Good, Rehab Referral Accepted - Medication Discharge Medications: Ambulatory Orders Fluoxetine HCl [Prozac -] 20 mg PO DAILY 05/16/17 Risperidone [Risperdal -] 0.5 mg PO BID 05/16/17 Amlodipine Besylate [Norvasc -] 5 mg PO DAILY #30 tablet 02/16/18 - AMA Did Patient Leave Against Medical Advice: No (rehab to [facility])
[2018-02-17 09:11] VITALS: BP 152/93; TEMP 97.9
[2018-02-17] MEDS: PRENATAL VITAMINS W/ FOLIC ACID TABLET (FP) PO SCH (10:11)
[2018-02-17] MEDS: amLODIPine BESYLATE 5 MG TABLET (FP) PO SCH (10:11)
[2018-02-17] MEDS: risperiDONE 0.5 MG TABLET (FP) PO SCH (10:11)
== END 2018-02-17 10:10 | disposition home or self-care (01) | DRG 774 ==
LOC: YASAS 13:41 → Y6N 17:08
PROC: HZ2ZZZZ Detoxification Services for Substance Abuse Treatment (ICD-10-PCS; principal; 2018-02-13)
DX: F10.230 Alcohol dependence with withdrawal, uncomplicated (principal); F14.20 Cocaine dependence, uncomplicated; F17.210 Nicotine dependence, cigarettes, uncomplicated; F19.24 Other psychoactive substance dependence with psychoactive substance-induced mood disorder; I10 Essential (primary) hypertension; B18.2 Chronic viral hepatitis C; R01.1 Cardiac murmur, unspecified; Z59.0 Homelessness
CPT/HCPCS: 36415; 80053; 81003; 85027; 86593; 93005; 93010; J0735

== ENCOUNTER 2018-04-30 10:38 | Inpatient (IN) | payer OTHER ==
[2018-04-30 13:44] VITALS: BMI 27.4
--- NOTE | 2018-04-30 13:53 | HP ---
CIWA Score Nausea/Vomitin Muscle Tremors: 2 Anxiety: 2 Agitation: 2 Paroxysmal Sweats: 1-Minimal Palms Moist Orientation: 0-Oriented Tacttile Disturbances: 1-Very Mild Itch/Numbness Auditory Disturbances: 1-Very Mild Visual Disturbances: 0-None Headache: 2-Mild CIWA-Ar Total Score: 13 - Admission Criteria [facility]ASAS Guidelines: Admission for Medically Managed Detox: Requires at least one of the followin. CIWA greater than 12 2. Seizures within the past 24 hours 3. Delirium tremens within the past 24 hours 4. Hallucinations within the past 24 hours 5. Acute intervention needed for co occurring medical disorder 6. Acute intervention needed for co occurring psychiatric disorder 7. Severe withdrawal that cannot be handled at a lower level of care (continued vomiting, continued diarrhea, abnormal vital signs) requiring intravenous medication and/or fluids 8. Patient presents the following: CIWA greater than 12 Admission Criteria Met: Admission criteria met Admission ROS [facility] - HPI Chief Complaint: i need help to stop drinking alcohol,cocaine Allergies/Adverse Reactions: Allergies Allergy/AdvReac Type Severity Reaction Status Date / Time No Known Allergies Allergy Verified 04/30/18 13:57 History of Present Illness: this 62 years old male with alcohol and cocaine dependence,seeking detox, withdrawal symptom,last detox [facility] 02/13/18 to 03/20 18 history of htn non compliance hepatitis c treated nicotine dependence schizophrenia longest period of sobriety 10 years - Ebola screening Have you traveled outside of the country in the last 21 days: No (N) Have you had contact with anyone from an Ebola affected area: No Have you been sick,other than usual withdrawal symptoms: No Do you have a fever: No - Review of Systems Constitutional: Loss of Appetite, Malaise, Night Sweats, Changes in sleep, Weakness EENT: reports: Nose Congestion Respiratory: reports: No Symptoms reported GI: reports: Nausea, Poor Appetite, Abdominal cramping : reports: No Symptoms Reported Integumentary: reports: Dryness Neuro: reports: Headache, Tremors Endocrine: reports: No Symptoms Reported Hematology: reports: No Symptoms Reported Psychiatric: reports: No Sypmtoms Reported, Judgement Intact, Mood/Affect Appropiate, Orientated x3, other (schizophrenia) Patient History - Patient Medical History Hx Anemia: No Hx Asthma: No Hx Chronic Obstructive Pulmonary Disease (COPD): No Hx Cancer: No Hx Cardiac Disorders: No Hx Congestive Heart Failure: No Hx Hypertension: No Hx Hypercholesterolemia: No Hx Pacemaker: No HX Cerebrovascular Accident: No Hx Seizures: No Hx Dementia: No Hx Diabetes: No Hx Gastrointestinal Disorders: No Hx Liver Disease: No Hx Genitourinary Disorders: No Hx Sexually Transmitted Disorders: No Hx Renal Disease (ESRD): No Hx Thyroid Disease: No Hx Human Immunodeficiency Virus (HIV): No (last 2017 negative) Hx Hepatitis C: Yes (treated) Hx Depression: Yes Hx Suicide Attempt: No Hx Bipolar Disorder: No Hx Schizophrenia: Yes Other Medical History: no suicidal,no homicidal - Patient Surgical History Past Surgical History: Yes Hx Neurologic Surgery: No Hx Cataract Extraction: No Hx Cardiac Surgery: No Hx Lung Surgery: No Hx Breast Surgery: No Hx Breast Biopsy: No Hx Abdominal Surgery: No Hx Appendectomy: No Hx Cholecystectomy: No Hx Genitourinary Surgery: No Hx Section: No Hx Orthopedic Surgery: Yes (left leg 1994) Anesthesia Reaction: No - PPD History Previous Implant?: Yes Documented Results: Negative w/proof Implanted On Prior [facility] Admission?: Yes Date: 05/18/17 Results: 0 mm PPD to be Administered?: No - Smoking Cessation Smoking history: Current every day smoker Have you smoked in the past 12 months: Yes Aproximately how many cigarettes per day: 10 Cigars Per Day: 0 Hx Chewing Tobacco Use: No Initiated information on smoking cessation: Yes 'Breaking Loose' booklet given: 04/30/18 - Substance & Tx. History Hx Alcohol Use: Yes Hx Substance Use: Yes Substance Use Type: Alcohol, Cocaine Hx Substance Use Treatment: Yes ([facility] 02/13/18 to 02/16/18) - Substances Abused Alcohol Route: Oral Frequency: Daily Amount used: 1 pint of rum/6 packs of 24 ozs of beer Age of first use: 17 Date of Last Use: 04/30/18 Cocaine Route: Smoking Frequency: 3-6 times per week Amount used: 150$ Age of first use: 40 Date of Last Use: 04/30/18 Family Disease History - Family Disease History Family Disease History: Other: Brother (no contact), Sister (no contact) Admission Physical Exam [facility] - Vital Signs Vital Signs: Vital Signs - 24 hr 04/30/18 13:43 Temperature 98.4 F Pulse Rate 80 Respiratory 20 Rate Blood Pressure 151/85 - Physical General Appearance: Yes: Moderate Distress, Tremorous, Irritable, Sweating, Anxious HEENTM: Yes: Normal ENT Inspection, MELISSA, Pharynx Normal Respiratory: Yes: Within Normal Limits, Lungs Clear, Normal Breath Sounds Neck: Yes: Within Normal Limits, Supple, Trachea in good position Breast: Yes: Within Normal Limits Cardiology: Yes: Within Normal Limits, Regular Rhythm, Regular Rate, S1, S2 Abdominal: Yes: Within Normal Limits, Normal Bowel Sounds, Non Tender, Flat, Soft Genitourinary: Yes: Within Normal Limits Back: Yes: Muscle Spasm Musculoskeletal: Yes: Muscle Pain Extremities: Yes: Tremors Neurological: Yes: building guard deputy sheriff II-XII NML intact, Fully Oriented, Alert, Motor Strength 5/5 Integumentary: Yes: Dry Lymphatic: Yes: Within Normal Limits - Diagnostic (1) Alcohol dependence with uncomplicated withdrawal Current Visit: Yes Status: Acute Comment: . (2) Cocaine dependence Current Visit: Yes Status: Chronic Qualifiers: Substance use status: uncomplicated Qualified Code(s): F14.20 - Cocaine dependence, uncomplicated Comment: . (3) Weight loss Current Visit: No Status: Acute (4) Hepatitis C Current Visit: No Status: Chronic Qualifiers: Viral hepatitis chronicity: carrier Qualified Code(s): B18.2 - Chronic viral hepatitis C Comment: treated 2015 (5) Hypertension Current Visit: No Status: Chronic Qualifiers: Hypertension type: essential hypertension Qualified Code(s): I10 - Essential (primary) hypertension (6) Nicotine dependence Current Visit: Yes Status: Chronic Qualifiers: Nicotine product type: cigarettes Substance use status: uncomplicated Qualified Code(s): F17.210 - Nicotine dependence, cigarettes, uncomplicated Comment: . (7) Schizophrenia Current Visit: Yes Status: Acute Cleared for Admission [facility] - Detox or Rehab [facility] Level of Care: Medically Managed Detox Regimen/Protocol: Librium [facility] Breath Alcohol Content Breath Alcohol Content: 0 Urine Drug Screen - Results Drug Screen Negative: No Urine Drug Screen Results: ANTONIO-Cocaine
[2018-04-30] MEDS ORDERED: LOPERAMIDE HCL 2 MG CAPSULE PO PRN (14:01)
[2018-04-30] MEDS ORDERED: ACETAMINOPHEN 325 MG TABLET (FP) PO PRN (14:01)
[2018-04-30] MEDS ORDERED: MAG HYDROX/AL HYDROX/SIMETH 30 ML UNIT-DOSE CUP PO PRN (14:01)
[2018-04-30] MEDS ORDERED: MAGNESIUM HYDROX 2400MG/30ML ORAL SUSPENSION 30 ML CUP PO PRN (14:01)
[2018-04-30] MEDS ORDERED: IBUPROFEN 400 MG TABLET (FP) PO PRN (14:01)
[2018-04-30] MEDS ORDERED: P-EPHED 60MG/TRIPROLIDI 2.5MG TABLET PO PRN (14:01)
[2018-04-30] MEDS ORDERED: guaiFENesin/D-METHORPHAN HB 10 ML UNIT-DOSE CUPS PO PRN (14:01)
[2018-04-30] MEDS ORDERED: chlordiazePOXIDE HCL 25 MG CAPSULE PO ONE (14:01)
[2018-04-30] MEDS ORDERED: chlordiazePOXIDE HCL 25 MG CAPSULE PO PRN (14:01)
[2018-04-30] MEDS ORDERED: MENTHOL/PHENOL 1 EACH UD MM PRN (14:01)
[2018-04-30] MEDS ORDERED: MAGNESIUM CITRATE 300 ML BOTTLE PO PRN (14:01)
--- NOTE | 2018-04-30 16:30 | CONSULT ---
[facility] Psychiatric Consult - Data Date of interview: 04/30/18 Admission source: [facility] Identifying data: This is one of multiple admissions to [facility] for this 62 y/ o AA male seeking detoxification treatment, on , for alcohol and cocaine dependence. Patient is single, a father of three, homeless, unemployed and supported on [facility] benefits. Substance Abuse History: Confirmed by patient in this session. Details in current [facility] report : Smoking history: Current every day smoker. Have you smoked in the past 12 months: Yes. Aproximately how many cigarettes per day: 10. Cigars Per Day: 0. Hx Chewing Tobacco Use: No. Initiated information on smoking cessation: Yes. 'Breaking Loose' booklet given: 04/30/18. - Substance & Tx. History. Hx Alcohol Use: Yes. Hx Substance Use: Yes. Substance Use Type : Alcohol, Cocaine. Hx Substance Use Treatment: Yes ([facility] 02/13/18 to 02/16/18) . - Substances Abused. Alcohol. Route: Oral. Frequency: Daily. Amount used: 1 pint of rum/6 packs of 24 ozs of beer. Age of first use: 17. Date of Last Use: 04/30/18. Cocaine. Route: Smoking. Frequency: 3-6 times per week. Amount used: 150$. Age of first use: 40. Date of Last Use: 04/30/18 Medical History: Hypertension, arthritis, chronic lumbar pain, cirrhosis, hepatitis C and a history of orthosurgery for fracture of left leg (1994). Psychiatric History: Patient reports a history of psychiatric hospitalization ( 2018) at [facility]. Diagnosis reported : MDD and Anxiety Disorder. [facility] records indicate Schizophrenia. Review of pharmacy claims yieds evidence of refills for fluoxetine and risperdal (09/2016) at [facility]. Mr Luciano declares non-adherence to medications " for more than six months ". Does not keep contact with psychiatric OPD care providers (( psychiatrists, therapists, [employer], social workers). Patient denies history of suicide attempts. Physical/Sexual Abuse/Trauma History: Patient declines. Additional Comment: Urine Drug Screen Results: ANTONIO-Cocaine. Noted. Mental Status Exam - Mental Status Exam Alert and Oriented to: Time, Place, Person Cognitive Function: Good Patient Appearance: Well Groomed Mood: Nervous, Withdrawn, Irritable Affect: Mood Congruent, Constricted Patient Behavior: Fatigued, Cooperative Speech Pattern: Clear Voice Loudness: Normal Thought Process: Goal Oriented Thought Disorder: Not Present Hallucinations: Denies Suicidal Ideation: Denies Homicidal Ideation: Denies Insight/Judgement: Poor Sleep: Poorly, Difficulty falling asleep Appetite: Good Muscle strength/Tone: Normal Gait/Station: Normal Psychiatric Findings - Problem List ([place], 2,3) (1) Alcohol dependence with uncomplicated withdrawal Current Visit: Yes Status: Acute Comment: . (2) Cocaine dependence Current Visit: Yes Status: Chronic Qualifiers: Substance use status: uncomplicated Qualified Code(s): F14.20 - Cocaine dependence, uncomplicated Comment: . (3) Nicotine dependence Current Visit: Yes Status: Chronic Qualifiers: Nicotine product type: cigarettes Substance use status: uncomplicated Qualified Code(s): F17.210 - Nicotine dependence, cigarettes, uncomplicated Comment: . (4) Substance induced mood disorder Current Visit: Yes Status: Chronic Comment: . (5) Insomnia Current Visit: Yes Status: Chronic (6) Non-compliance Current Visit: Yes Status: Chronic - Initial Treatment Plan Initial Treatment Plan: Psychoeducation. Sleep hygiene. Detoxification in progress. Support. AA meetings. Patient declines option of transition to rehabilitation but he appears to favor referral to OTP drug program upon completion of detoxification. Risperdal + fluoxetine held (not taken for more than 6 months). Observation. Insomnia is addressed with melatonin 5 mg po at bedtime. Patient agrees.
[2018-04-30] MEDS: chlordiazePOXIDE HCL 25 MG CAPSULE PO SCH ×2 (17:23→22:31)
[2018-04-30] MEDS ORDERED: MELATONIN 5 MG TABLETS PO PRN (22:00)
[2018-04-30] MEDS: THIAMINE HCL 100 MG TABLET (FP) PO SCH (22:31)
[2018-05-01] MEDS: chlordiazePOXIDE HCL 25 MG CAPSULE PO SCH ×4 (05:23→22:31)
[2018-05-01] MEDS: PRENATAL VITAMINS W/ FOLIC ACID TABLET (FP) PO SCH (10:30)
[2018-05-01 11:07] LABS: HEMATOCRIT 43.4 % (35.4-49); HEMOGLOBIN 13.7 GM/dL (11.7-16.9); MCH 29.1 pg (25.7-33.7); MCHC 31.5 g/dl (32.0-35.9); MEAN CELL VOLUME 92.4 fl (80-96); MEAN PLT VOLUME 10.5 fl (7.5-11.1); PLATELET COUNT 202 K/MM3 (134-434); RDW 13.5 % (11.9-15.9); WHITE BLOOD COUNT 8.3 K/mm3 (4.0-10.0)
[2018-05-01 11:20] LABS: ALBUMIN 3.8 g/dl (3.4-5.0); ANION GAP 4 MMOL/L (8-16); BILIRUBIN,TOTAL 0.4 mg/dL (0.2-1); BLOOD UREA NITROGEN 14 mg/dL (7-18); CALCIUM 9.3 mg/dL (8.5-10.1); CHLORIDE 107 mmol/L (98-107); CO2 30 mmol/L (21-32); CREATININE 1.2 mg/dL (0.55-1.3); GLUCOSE,RANDOM 107 mg/dL (74-106); POTASSIUM 3.8 mmol/L (3.5-5.1); SGOT/AST 14 U/L (15-37); SGPT/ALT 19 U/L (13-61); SODIUM 141 mmol/L (136-145); TOT PROT 7.1 g/dl (6.4-8.2)
[2018-05-01 11:21] LABS: ALK PHOS 68 U/L (45-117)
--- NOTE | 2018-05-01 11:32 | PN ---
[facility] CIWA - CIWA Score Nausea/Vomitin-Mild Nausea/No Vomiting Muscle Tremors: 3 Anxiety: 2 Agitation: 3 Paroxysmal Sweats: 1-Minimal Palms Moist Orientation: 1-Uncertain about Date Tacttile Disturbances: 0-None Auditory Disturbances: 0-None Visual Disturbances: 0-None Headache: 1-Very Mild CIWA-Ar Total Score: 12 S Progress Note (SOAP) Subjective: tremor sweat GI distress restlessness anxiety Objective: 05/01/18 11:30 Vital Signs Temperature 96.9 F L 05/01/18 09:11 Pulse Rate 61 05/01/18 09:11 Respiratory Rate 18 05/01/18 09:11 Blood Pressure 109/65 05/01/18 09:11 O2 Sat by Pulse Oximetry (%) Laboratory Last Values WBC 8.3 K/mm3 (4.0-10.0) 05/01/18 06:00 RBC 4.70 M/mm3 (4.00-5.60) 05/01/18 06:00 Hgb 13.7 GM/dL (11.7-16.9) 05/01/18 06:00 Hct 43.4 % (35.4-49) 05/01/18 06:00 MCV 92.4 fl (80-96) 05/01/18 06:00 MCH 29.1 pg (25.7-33.7) 05/01/18 06:00 MCHC 31.5 g/dl (32.0-35.9) L 05/01/18 06:00 RDW 13.5 % (11.9-15.9) 05/01/18 06:00 Plt Count 202 K/MM3 (134-434) D 05/01/18 06:00 MPV 10.5 fl (7.5-11.1) 05/01/18 06:00 Sodium 141 mmol/L (136-145) 05/01/18 06:00 Potassium 3.8 mmol/L (3.5-5.1) 05/01/18 06:00 Chloride 107 mmol/L (98-107) 05/01/18 06:00 Carbon Dioxide 30 mmol/L (21-32) 05/01/18 06:00 Anion Gap 4 MMOL/L (8-16) L 05/01/18 06:00 BUN 14 mg/dL (7-18) 05/01/18 06:00 Creatinine 1.2 mg/dL (0.55-1.3) 05/01/18 06:00 Creat Clearance w eGFR > 60 (>60) 05/01/18 06:00 Random Glucose 107 mg/dL (74-106) H 05/01/18 06:00 Calcium 9.3 mg/dL (8.5-10.1) 05/01/18 06:00 Total Bilirubin 0.4 mg/dL (0.2-1) 05/01/18 06:00 AST 14 U/L (15-37) L 05/01/18 06:00 ALT 19 U/L (13-61) 05/01/18 06:00 Alkaline Phosphatase 68 U/L (45-117) 05/01/18 06:00 Total Protein 7.1 g/dl (6.4-8.2) 05/01/18 06:00 Albumin 3.8 g/dl (3.4-5.0) 05/01/18 06:00 lab noted Assessment: 05/01/18 11:32 withdrawal sx Plan: continue detox
--- NOTE | 2018-05-01 12:01 | PN ---
[facility] CIWA - CIWA Score Nausea/Vomitin-No Nausea/No Vomiting Muscle Tremors: 2 Anxiety: 3 Agitation: 1-Slight > Activity Paroxysmal Sweats: 2 Orientation: 1-Uncertain about Date Tacttile Disturbances: 0-None Auditory Disturbances: 0-None Visual Disturbances: 0-None Headache: 0-None Present CIWA-Ar Total Score: 9 BHS Progress Note (SOAP) Subjective: PATIENT C/O INTERRUPTED SLEEP, ANXIETY AND CHILLS. Objective: Vital Signs Temperature 96.9 F L 05/01/18 09:11 Pulse Rate 61 05/01/18 09:11 Respiratory Rate 18 05/01/18 09:11 Blood Pressure 109/65 05/01/18 09:11 O2 Sat by Pulse Oximetry (%) Laboratory Tests 05/01/18 05/01/18 05/01/18 06:00 06:00 06:00 WBC 8.3 RBC 4.70 Hgb 13.7 Hct 43.4 MCV 92.4 MCH 29.1 MCHC 31.5 L RDW 13.5 Plt Count 202 D MPV 10.5 Sodium 141 Potassium 3.8 Chloride 107 Carbon Dioxide 30 Anion Gap 4 L BUN 14 Creatinine 1.2 Creat Clearance w eGFR > 60 Random Glucose 107 H Calcium 9.3 Total Bilirubin 0.4 AST 14 L ALT 19 Alkaline Phosphatase 68 Total Protein 7.1 Albumin 3.8 RPR Titer Nonreactive PE: ALERT AND ORIENTED X 3 SKIN WARM, +FACIAL MOISTURE EXT FULL ROM, + TREMORS AMB AD JUAN R +IRRITABILITY, ANXIETY Assessment: 05/01/18 12:01 WITHDRAWAL SX Plan: CONTINUE DETOX ENCOURAGE ORAL FLUIDS CONTINUE TO MONITOR CLINICALLY
[2018-05-01] MEDS: THIAMINE HCL 100 MG TABLET (FP) PO SCH (22:31)
[2018-05-02] MEDS: chlordiazePOXIDE HCL 25 MG CAPSULE PO SCH ×2 (05:30→10:35)
[2018-05-02 09:42] VITALS: BP 115/66; PULSE 79; TEMP 98.2
[2018-05-02] MEDS: PRENATAL VITAMINS W/ FOLIC ACID TABLET (FP) PO SCH (10:35)
--- NOTE | 2018-05-02 11:27 | DS ---
[facility] Detox Discharge Summary Admission Date: 04/30/18 Discharge Date: 05/02/18 - History Present History: Alcohol Dependence, Cocaine Dependence - Physical Exam Results Vital Signs: Vital Signs Temperature 98.2 F 05/02/18 09:40 Pulse Rate 79 05/02/18 09:40 Respiratory Rate 18 05/02/18 09:40 Blood Pressure 115/66 05/02/18 09:40 O2 Sat by Pulse Oximetry (%) - Medication Discharge Medications: Ambulatory Orders Fluoxetine HCl [Prozac -] 20 mg PO DAILY 05/16/17 Risperidone [Risperdal -] 0.5 mg PO BID 05/16/17 Amlodipine Besylate [Norvasc -] 5 mg PO DAILY #30 tablet 05/01/18 - Diagnosis (1) Alcohol dependence with uncomplicated withdrawal Current Visit: Yes Status: Acute (2) Cocaine dependence Current Visit: Yes Status: Chronic Qualifiers: Substance use status: uncomplicated Qualified Code(s): F14.20 - Cocaine dependence, uncomplicated - AMA Did Patient Leave Against Medical Advice: Yes
--- NOTE | 2018-05-02 11:30 | PN ---
[facility] Progress Note Note: PATIENT ALERT AND ORIENTED TO NAME AND PLACE, UNSURE OF DATE, STATED "EITHER THE OR April". PATIENT STATES I FEEL TIRED AND DON'T WANT TO DO ANYTHING. PATIENT ENCOURAGED TO ATTEND GROUP AND REVIEWED UNIT PROTOCOL/DETOX REGIMEN. PATIENT AGREED WITH PLAN AND THEN LATER INFORMED RN HE WANTED TO SIGN OUT. PATIENT ENCOURAGED TO COMPLETE DETOX BY STAFF AND EXPLAINED RISK OF RELAPSE. PATIENT REFUSED TO STAY. SIGNED OUT AMA.
[2018-05-02] MEDS ORDERED: chlordiazePOXIDE 5 MG CAPSULE PO SCH (17:00)
[2018-05-03] MEDS ORDERED: chlordiazePOXIDE HCL 10 MG CAPSULE PO SCH (17:00)
== END 2018-05-02 12:06 | disposition left against medical advice (07) | DRG 770 ==
LOC: YASAS 10:38 → Y3N 14:04
PROC: HZ2ZZZZ Detoxification Services for Substance Abuse Treatment (ICD-10-PCS; principal; 2018-04-30)
DX: F10.230 Alcohol dependence with withdrawal, uncomplicated (principal); F14.20 Cocaine dependence, uncomplicated; F17.210 Nicotine dependence, cigarettes, uncomplicated; F19.24 Other psychoactive substance dependence with psychoactive substance-induced mood disorder; F20.9 Schizophrenia, unspecified; G47.00 Insomnia, unspecified; B18.2 Chronic viral hepatitis C; Z91.19 Patient's noncompliance with other medical treatment and regimen; Z59.0 Homelessness
CPT/HCPCS: 36415; 80053; 85027; 86593; 87389

== ENCOUNTER 2018-06-12 14:44 | Inpatient (IN) | payer OTHER ==
[2018-06-12 15:06] VITALS: BMI 29.0
--- NOTE | 2018-06-12 19:34 | HP ---
CIWA Score Nausea/Vomitin-No Nausea/No Vomiting Muscle Tremors: None Anxiety: 4-Mod. Anxious/Guarded Agitation: 2 Paroxysmal Sweats: 3 Orientation: 0-Oriented Tacttile Disturbances: 0-None Auditory Disturbances: 0-None Visual Disturbances: 3-Moderate Sensitivity Headache: 0-None Present CIWA-Ar Total Score: 12 - Admission Criteria OASAS Guidelines: Admission for Medically Managed Detox: Requires at least one of the followin. CIWA greater than 12 2. Seizures within the past 24 hours 3. Delirium tremens within the past 24 hours 4. Hallucinations within the past 24 hours 5. Acute intervention needed for co occurring medical disorder 6. Acute intervention needed for co occurring psychiatric disorder 7. Severe withdrawal that cannot be handled at a lower level of care (continued vomiting, continued diarrhea, abnormal vital signs) requiring intravenous medication and/or fluids 8. Admission ROS [facility] Allergies/Adverse Reactions: Allergies Allergy/AdvReac Type Severity Reaction Status Date / Time No Known Allergies Allergy Verified 04/30/18 13:57 History of Present Illness: patient here requesting detox from etoh use reports 1/ /day , reports he feels uncomfortable if not drinking , feeling anxious , denies seizures , + blackouts , + fall [place] went [place] [facility] 2 years ago , reports was told to followup and he did not, latest use today current CAROL 0.016. Reports he starts drinking around 12 noon , first age of etoh use : 17 , prior detox x 3-4 , most recently at this facility . cocaine use : latest use 1 year ago , denies IVDU use tobacco : 1 ppd PMHX : HTN , reports he has not taken BP meds in > 8 months , does not recall name . PSyxh: depression, anxiety has rx from [facility], was there 1 week ago for depression , denies current SI / HI, has meds rx 06/04/18 [employer] [phone] PShx : left leg tib-fib compound frx 1994 w/ ORI , has hardware . SHx : homeless " [place] and [facility] " , SSD for MH Exam Limitations: No Limitations - Ebola screening Have you traveled outside of the country in the last 21 days: No Have you had contact with anyone from an Ebola affected area: No Do you have a fever: No - Review of Systems Constitutional: See HPI EENT: reports: See HPI, Other (glasses myopia , " I have one tooth left ") Respiratory: reports: No Symptoms reported Cardiac: reports: No Symptoms Reported, See HPI (reports he went to [facility] for Chest pain 1 year ago, denies current symptoms) GI: reports: No Symptoms Reported : reports: No Symptoms Reported Musculoskeletal: reports: Joint Pain (left knee and left ankle) Integumentary: reports: Other (reprots growth on the back of the neck has seen PCP , declined surgery) Neuro: reports: See HPI Endocrine: reports: No Symptoms Reported Psychiatric: reports: Orientated x3, Anxious Patient History - Patient Medical History Hx Anemia: No Hx Asthma: No Hx Chronic Obstructive Pulmonary Disease (COPD): No Hx Cancer: No Hx Cardiac Disorders: No Hx Congestive Heart Failure: No Hx Hypertension: No Hx Hypercholesterolemia: No Hx Pacemaker: No HX Cerebrovascular Accident: No Hx Seizures: No Hx Dementia: No Hx Diabetes: No Hx Gastrointestinal Disorders: No Hx Liver Disease: No Hx Genitourinary Disorders: No Hx Sexually Transmitted Disorders: No Hx Renal Disease (ESRD): No Hx Thyroid Disease: No Hx Human Immunodeficiency Virus (HIV): No (last 2017 negative) Hx Hepatitis C: Yes (treated) Hx Depression: Yes Hx Suicide Attempt: No Hx Bipolar Disorder: No Hx Schizophrenia: Yes - Patient Surgical History Past Surgical History: Yes Hx Neurologic Surgery: No Hx Cataract Extraction: No Hx Cardiac Surgery: No Hx Lung Surgery: No Hx Breast Surgery: No Hx Breast Biopsy: No Hx Abdominal Surgery: No Hx Appendectomy: No Hx Cholecystectomy: No Hx Genitourinary Surgery: No Hx Section: No Hx Orthopedic Surgery: Yes (left leg 1994) Anesthesia Reaction: No - PPD History Date: 05/18/17 Results: 0 mm - Smoking Cessation Smoking history: Current every day smoker Have you smoked in the past 12 months: Yes Aproximately how many cigarettes per day: 10 Cigars Per Day: 0 Hx Chewing Tobacco Use: No Initiated information on smoking cessation: No Family Disease History - Family Disease History Family Disease History: Other: Brother (no contact), Sister (no contact) Admission Physical Exam BHS - Vital Signs Vital Signs: Vital Signs - 24 hr 06/12/18 15:01 Temperature 99 F Pulse Rate 64 Respiratory 18 Rate Blood Pressure 156/90 - Physical General Appearance: Yes: Mild Distress HEENTM: Yes: EOMI, Hearing grossly Normal, Normocephalic, Normal Voice, Other ( dentures upper and lower) Respiratory: Yes: Chest Non-Tender, Lungs Clear, Normal Breath Sounds Neck: Yes: No masses,lesions,Nodules, Trachea in good position Cardiology: Yes: Regular Rhythm, Regular Rate, S1, S2 Abdominal: Yes: Normal Bowel Sounds, Non Tender, Soft Genitourinary: Yes: Within Normal Limits Back: Yes: Normal Inspection Musculoskeletal: Yes: Gait Steady, Joint Stiffness (left knee) Extremities: Yes: Normal Capillary Refill, Pedal Edema (LLE , scarring from surgery) Neurological: Yes: Motor Strength 5/5 Integumentary: Yes: Normal Color, Other (posterior lower cervical lipoma) - Diagnostic (1) Alcohol dependence with uncomplicated withdrawal Current Visit: No Status: Acute Comment: . (2) Hypertension Current Visit: No Status: Chronic Qualifiers: Hypertension type: essential hypertension Qualified Code(s): I10 - Essential (primary) hypertension (3) Nicotine dependence Current Visit: No Status: Chronic Qualifiers: Nicotine product type: cigarettes Substance use status: uncomplicated Qualified Code(s): F17.210 - Nicotine dependence, cigarettes, uncomplicated Comment: . BHS Breath Alcohol Content Breath Alcohol Content: 0.016 Urine Drug Screen - Results Drug Screen Negative: Yes Inpatient Rehab Admission - Rehab Decision to Admit Inpatient rehab admission?: No
[2018-06-12] MEDS ORDERED: diazePAM 5 MG TABLET PO PRN (19:53)
[2018-06-12] MEDS ORDERED: ACETAMINOPHEN 325 MG TABLET (FP) PO PRN (19:53)
[2018-06-12] MEDS ORDERED: MENTHOL/PHENOL 1 EACH UD MM PRN (19:53)
[2018-06-12] MEDS ORDERED: MAG HYDROX/AL HYDROX/SIMETH 30 ML UNIT-DOSE CUP PO PRN (19:53)
[2018-06-12] MEDS ORDERED: MAGNESIUM HYDROX 2400MG/30ML ORAL SUSPENSION 30 ML CUP PO PRN (19:53)
[2018-06-12] MEDS ORDERED: MAGNESIUM CITRATE 300 ML BOTTLE PO PRN (19:53)
[2018-06-12] MEDS ORDERED: cloNIDine HCL 0.1 MG TABLET PO PRN (19:56)
[2018-06-12] MEDS ORDERED: MELATONIN 5 MG TABLETS PO PRN (22:00)
[2018-06-12] MEDS: diazePAM 5 MG TABLET PO SCH (22:58)
[2018-06-12] MEDS: IBUPROFEN 400 MG TABLET (FP) PO PRN (22:59)
[2018-06-12] MEDS: risperiDONE 0.5 MG TABLET (FP) PO SCH (23:00)
[2018-06-12] MEDS: THIAMINE HCL 100 MG TABLET (FP) PO SCH (23:10)
[2018-06-13] MEDS: diazePAM 5 MG TABLET PO SCH ×3 (06:08→22:16)
[2018-06-13] MEDS ORDERED: FLUoxetine HCL 20 MG CAPSULE (FP) PO ONE (10:00)
[2018-06-13 10:08] LABS: HEMATOCRIT 42.1 % (35.4-49); HEMOGLOBIN 13.9 GM/dL (11.7-16.9); MCH 30.9 pg (25.7-33.7); MEAN CELL VOLUME 93.7 fl (80-96); MEAN PLT VOLUME 10.2 fl (7.5-11.1); PLATELET COUNT 197 K/MM3 (134-434); RBC 4.49 M/mm3 (4.00-5.60); RDW 12.9 % (11.9-15.9); WHITE BLOOD COUNT 6.1 K/mm3 (4.0-10.0)
[2018-06-13] MEDS: PRENATAL VITAMINS W/ FOLIC ACID TABLET (FP) PO SCH (10:47)
[2018-06-13] MEDS: risperiDONE 0.5 MG TABLET (FP) PO SCH ×3 (10:48→22:16)
--- NOTE | 2018-06-13 10:55 | CONSULT ---
[facility] Psychiatric Consult - Data Date of interview: 06/13/18 Admission source: Self-referred Identifying data: Mr Luciano is a 62 years old single Black male, father of 3 children, unemployed on SSI, homeless seeking detox treatment for alcohol Substance Abuse History: Reports history of alcohol use. He started drinking at age 18, consumes one quart of liquor daily. Last drank on 06/12/18 Medical History: Significant hypertension, arthritis, cirrhosis of the liver, history of treatment for hepatitis C and orthosurgery for fracture of left leg( tibia/fibula) in 1994. Smokes 10 cihgarettes daily Psychiatric History: Patient is somewhat guarded, not forthcoming with providing psychiatric information. He reluctantly admits to being diagnosed with Schizophrenia. Claims depression and anxiety as his diagnoses. Reports one previous psychiatric hospitalization at [facility] in 2018 but refuses to provide details on that admission. Reports currently seing a psychiatrist at [facility] and he is prescribed Prozac 20 mg po daily and Risperdal 0.5 mg po BID. No information on record for pharmacy review. Denies previous suicidal attempt. At present, he is very irritable. However, denies experiencing psychotic symptoms, S/H ideations Physical/Sexual Abuse/Trauma History: Denies history of emotional, physical or sexual abuse as well as DV relationship. No service Mental Status Exam - Mental Status Exam Alert and Oriented to: Time, Place, Person Cognitive Function: Fair Patient Appearance: Disheveled Mood: Irritable Speech Pattern: Clear Voice Loudness: Normal Thought Process: Intact, Goal Oriented Hallucinations: Denies Suicidal Ideation: Denies Homicidal Ideation: Denies Insight/Judgement: Poor Sleep: Well Appetite: Good Muscle strength/Tone: Normal Gait/Station: Normal Psychiatric Findings - Problem List ([place] 1, 2,3) (1) Schizophrenia Current Visit: Yes Status: Chronic (2) Substance induced mood disorder Current Visit: Yes Status: Acute (3) Alcohol dependence with uncomplicated withdrawal Current Visit: Yes Status: Acute (4) Cocaine dependence Current Visit: No Status: Acute Qualifiers: Substance use status: uncomplicated Qualified Code(s): F14.20 - Cocaine dependence, uncomplicated Comment: . (5) Nicotine dependence Current Visit: No Status: Chronic Qualifiers: Nicotine product type: cigarettes Substance use status: uncomplicated Qualified Code(s): F17.210 - Nicotine dependence, cigarettes, uncomplicated Comment: . (6) Hepatitis C Current Visit: No Status: Resolved Qualifiers: Viral hepatitis chronicity: carrier Qualified Code(s): B18.2 - Chronic viral hepatitis C Comment: treated 2015 (7) Hypertension Current Visit: No Status: Chronic Qualifiers: Hypertension type: essential hypertension Qualified Code(s): I10 - Essential (primary) hypertension (8) Arthritis Current Visit: Yes Status: Chronic (9) Cirrhosis of liver Current Visit: Yes Status: Chronic - Initial Treatment Plan Initial Treatment Plan: 1) Continue Prozac 20 mg po daily and Risperdal 0.5 mg po BID. 2) Continue inpatient detoxification
[2018-06-13 11:00] LABS: ALBUMIN 3.4 g/dl (3.4-5.0); ALK PHOS 56 U/L (45-117); ANION GAP 4 MMOL/L (8-16); BILIRUBIN,TOTAL 0.6 mg/dL (0.2-1); BLOOD UREA NITROGEN 13 mg/dL (7-18); CALCIUM 9.4 mg/dL (8.5-10.1); CHLORIDE 106 mmol/L (98-107); CO2 33 mmol/L (21-32); CREATININE 1.2 mg/dL (0.55-1.3); GLUCOSE,RANDOM 88 mg/dL (74-106); POTASSIUM 4.6 mmol/L (3.5-5.1); SGOT/AST 9 U/L (15-37); SGPT/ALT 17 U/L (13-61); SODIUM 143 mmol/L (136-145); TOT PROT 6.4 g/dl (6.4-8.2)
--- NOTE | 2018-06-13 12:07 | PN ---
[facility] CIWA - CIWA Score Nausea/Vomitin-No Nausea/No Vomiting Muscle Tremors: 3 Anxiety: 3 Agitation: 3 Paroxysmal Sweats: 3 Orientation: 0-Oriented Tacttile Disturbances: 0-None Auditory Disturbances: 0-None Visual Disturbances: 0-None Headache: 0-None Present CIWA-Ar Total Score: 12 S Progress Note (SOAP) Subjective: irritable agitation interrupted sleep sweats Objective: 06/13/18 12:06 Vital Signs Temperature 97.4 F L 06/13/18 09:28 Pulse Rate 51 L 06/13/18 09:28 Respiratory Rate 19 06/13/18 09:28 Blood Pressure 106/67 06/13/18 09:28 O2 Sat by Pulse Oximetry (%) Laboratory Tests 06/13/18 06/13/18 07:00 07:00 WBC 6.1 RBC 4.49 Hgb 13.9 Hct 42.1 MCV 93.7 MCH 30.9 MCHC 33.0 RDW 12.9 Plt Count 197 MPV 10.2 Sodium 143 Potassium 4.6 Chloride 106 Carbon Dioxide 33 H Anion Gap 4 L BUN 13 Creatinine 1.2 Creat Clearance w eGFR > 60 Random Glucose 88 Calcium 9.4 Total Bilirubin 0.6 AST 9 L ALT 17 Alkaline Phosphatase 56 Total Protein 6.4 Albumin 3.4 aaox3 ambulating no acute distress Assessment: 06/13/18 12:06 withdrawal sx Plan: continue detox increase fluids
[2018-06-13] MEDS: FLUoxetine HCL 20 MG CAPSULE (FP) PO SCH (12:26)
[2018-06-13] MEDS: THIAMINE HCL 100 MG TABLET (FP) PO SCH (22:16)
[2018-06-13] MEDS: IBUPROFEN 400 MG TABLET (FP) PO PRN (22:16)
[2018-06-14] MEDS: PRENATAL VITAMINS W/ FOLIC ACID TABLET (FP) PO SCH (10:49)
[2018-06-14] MEDS: FLUoxetine HCL 20 MG CAPSULE (FP) PO SCH (10:49)
[2018-06-14] MEDS: risperiDONE 0.5 MG TABLET (FP) PO SCH ×2 (10:49→22:15)
[2018-06-14] MEDS: diazePAM 5 MG TABLET PO SCH ×2 (10:49→22:15)
[2018-06-14] MEDS: IBUPROFEN 400 MG TABLET (FP) PO PRN ×2 (10:51→22:18)
--- NOTE | 2018-06-14 17:21 | PN ---
[facility] CIWA - CIWA Score Nausea/Vomitin-No Nausea/No Vomiting Muscle Tremors: 2 Anxiety: 1-Mildly Anxious Agitation: 5 Paroxysmal Sweats: 3 Orientation: 0-Oriented Tacttile Disturbances: 0-None Auditory Disturbances: 0-None Visual Disturbances: 0-None Headache: 0-None Present CIWA-Ar Total Score: 11 S Progress Note (SOAP) Subjective: sweats Objective: 06/14/18 17:20 A & O x3 restless irritable Vital Signs Temperature 98.4 F 06/14/18 14:40 Pulse Rate 81 06/14/18 14:40 Respiratory Rate 18 06/14/18 14:40 Blood Pressure 135/62 06/14/18 14:40 O2 Sat by Pulse Oximetry (%) Assessment: 06/14/18 17:21 withdrawal sx Plan: continue detox increase hydration
[2018-06-14] MEDS: THIAMINE HCL 100 MG TABLET (FP) PO SCH (22:15)
[2018-06-15] MEDS ORDERED: diazePAM 5 MG TABLET PO SCH (10:00)
[2018-06-15] MEDS: FLUoxetine HCL 20 MG CAPSULE (FP) PO SCH (10:04)
[2018-06-15] MEDS: risperiDONE 0.5 MG TABLET (FP) PO SCH ×2 (10:05→22:15)
[2018-06-15] MEDS: PRENATAL VITAMINS W/ FOLIC ACID TABLET (FP) PO SCH (10:05)
[2018-06-15] MEDS: IBUPROFEN 400 MG TABLET (FP) PO PRN (10:06)
--- NOTE | 2018-06-15 18:27 | PN ---
[facility] Progress Note (SOAP) Subjective: Anxious, interrupted sleep Objective: 06/15/18 18:25 Last Vital Signs Temp Pulse Resp BP Pulse Ox 98.2 F 76 18 146/97 06/15/18 18:24 06/15/18 18:24 06/15/18 18:24 06/15/18 18:24 H/O HTN: prn clonidine Laboratory Tests 06/13/18 06/13/18 06/13/18 07:00 07:00 07:00 WBC 6.1 RBC 4.49 Hgb 13.9 Hct 42.1 MCV 93.7 MCH 30.9 MCHC 33.0 RDW 12.9 Plt Count 197 MPV 10.2 Sodium 143 Potassium 4.6 Chloride 106 Carbon Dioxide 33 H Anion Gap 4 L BUN 13 Creatinine 1.2 Creat Clearance w eGFR > 60 Random Glucose 88 Calcium 9.4 Total Bilirubin 0.6 AST 9 L ALT 17 Alkaline Phosphatase 56 Total Protein 6.4 Albumin 3.4 RPR Titer Nonreactive Labs reviewed Assessment: 06/15/18 18:26 Withdrawal symptoms Plan: Continue detox Encouraged PO water intake
[2018-06-15] MEDS: THIAMINE HCL 100 MG TABLET (FP) PO SCH (22:15)
--- NOTE | 2018-06-16 08:59 | DS ---
[facility] Detox Discharge Summary Admission Date: 06/12/18 Discharge Date: 06/16/18 - History Present History: Alcohol Dependence, Cocaine Dependence - Physical Exam Results Vital Signs: Vital Signs Temperature 99 F 06/16/18 07:18 Pulse Rate 65 06/16/18 07:18 Respiratory Rate 18 06/16/18 07:18 Blood Pressure 135/78 06/16/18 07:18 O2 Sat by Pulse Oximetry (%) - Treatment Hospital Course: Detox Protocol Followed, Detoxed Safely, Responded well, Discharged Condition Good, Rehab Referral Accepted - Medication Discharge Medications: Ambulatory Orders Fluoxetine HCl [Prozac -] 20 mg PO DAILY 05/16/17 Risperidone [Risperdal -] 0.5 mg PO BID 05/16/17 Amlodipine Besylate [Norvasc -] 5 mg PO DAILY #30 tablet 05/01/18 - Diagnosis (1) Alcohol dependence with uncomplicated withdrawal Current Visit: Yes Status: Chronic (2) Substance induced mood disorder Current Visit: Yes Status: Acute (3) Anxiety Current Visit: Yes Status: Chronic (4) Arthritis Current Visit: Yes Status: Chronic (5) Cirrhosis of liver Current Visit: Yes Status: Chronic Qualifiers: Hepatic cirrhosis type: unspecified hepatic cirrhosis (6) Depression (emotion) Current Visit: Yes Status: Chronic Qualifiers: Depression Type: dysthymia Qualified Code(s): F34.1 - Dysthymic disorder (7) Hepatitis C Current Visit: Yes Status: Chronic Qualifiers: Viral hepatitis chronicity: carrier Qualified Code(s): B18.2 - Chronic viral hepatitis C (8) Hypertension Current Visit: Yes Status: Chronic Qualifiers: Hypertension type: essential hypertension Qualified Code(s): I10 - Essential (primary) hypertension (9) Cocaine dependence Current Visit: Yes Status: Chronic Qualifiers: Substance use status: uncomplicated Qualified Code(s): F14.20 - Cocaine dependence, uncomplicated (10) Schizophrenia Current Visit: Yes Status: Chronic Qualifiers: Schizophrenia type: unspecified Qualified Code(s): F20.9 - Schizophrenia, unspecified (11) Weight loss Current Visit: No Status: Acute (12) Insomnia Current Visit: No Status: Chronic (13) Nicotine dependence Current Visit: Yes Status: Chronic Qualifiers: Nicotine product type: cigarettes Substance use status: uncomplicated Qualified Code(s): F17.210 - Nicotine dependence, cigarettes, uncomplicated (14) Non-compliance Current Visit: No Status: Chronic (15) Substance induced mood disorder Current Visit: No Status: Chronic - AMA Did Patient Leave Against Medical Advice: No (declined rehab; going home)
[2018-06-16] MEDS: risperiDONE 0.5 MG TABLET (FP) PO SCH (10:04)
[2018-06-16] MEDS: FLUoxetine HCL 20 MG CAPSULE (FP) PO SCH (10:04)
[2018-06-16] MEDS: PRENATAL VITAMINS W/ FOLIC ACID TABLET (FP) PO SCH (10:04)
[2018-06-16 10:43] VITALS: BP 161/75; PULSE 84; TEMP 98.4
== END 2018-06-16 10:32 | disposition home or self-care (01) | DRG 774 ==
LOC: YASAS 14:44 → Y6N 20:55 → Y3N 22:53 → Y6N 22:54
PROVIDERS: ADMIT Surgery; ATTEND Surgery
PROC: HZ2ZZZZ Detoxification Services for Substance Abuse Treatment (ICD-10-PCS; principal; 2018-06-12)
DX: F10.230 Alcohol dependence with withdrawal, uncomplicated (principal); F14.20 Cocaine dependence, uncomplicated; F17.210 Nicotine dependence, cigarettes, uncomplicated; F19.24 Other psychoactive substance dependence with psychoactive substance-induced mood disorder; F41.9 Anxiety disorder, unspecified; F34.1 Dysthymic disorder; F20.9 Schizophrenia, unspecified; I10 Essential (primary) hypertension; K74.60 Unspecified cirrhosis of liver; M19.90 Unspecified osteoarthritis, unspecified site; B18.2 Chronic viral hepatitis C; G47.00 Insomnia, unspecified; Z91.14 Patient's other noncompliance with medication regimen; Z59.0 Homelessness
CPT/HCPCS: 36415; 80053; 85027; 86593; J0735